=== PATIENT | female | born 1970 | race Caucasian/White ===

== ENCOUNTER 2019-02-24 10:45 | Emergency (ER) | payer MEDICARE, MEDICAID, SELFPAY ==
[2019-02-24 10:46] VITALS: BP 117/77; PULSE 57; RESP 16; TEMP 36.4; O2SAT 99; BMI 36.5
--- NOTE | 2019-02-24 10:49 | ED.RN ---
ATYPICAL SX, CALLED FOR EKG
--- NOTE | 2019-02-24 10:57 | US_ITS ---
STUDY: ABDOMINAL ULTRASOUND - RIGHT UPPER QUADRANT REASON FOR VISIT: Female, 48 years old . One day history of right upper quadrant pain. TECHNIQUE: Ultrasound evaluation of the right upper quadrant was performed with real-time and static erd-scale imaging. TECHNICAL QUALITY: Adequate. COMPARISON: None. FINDINGS: Liver: The liver measures 15.5 cm. There is normal echogenicity of the liver. The bile ducts are within normal limits. There is hepatic color flow. The direction of portal flow is hepatopetal. There is no demonstrated mass lesion. Gallbladder: Normal distended gallbladder. The gallbladder wall measures 2.8 mm. There is a negative sonographic Suarez's sign. There is no pericholecystic fluid. There are no gallstones. Common Bile Duct (C.B.D.): The common bile duct measures 4.3 mm. Pancreas: Normal size of the head, body and tail of the pancreas. There is normal echogenicity of the pancreas. There is no demonstrated pancreatic mass or cyst. Right Kidney: Normal size of the right kidney. The right kidney measures 10.5 cm x 5.4 cm x 4.6 cm. Normal renal cortex. The right cortex measures 1.7 cm. There is no demonstrated renal mass or cyst. There is no right hydronephrosis. US/Abdomen Limited IMPRESSION: Normal right upper quadrant ultrasound examination. Electronically Signed: Jerry De La O, at 12:41 EST , Service support ,
--- NOTE | 2019-02-24 10:58 | EKG12_ITS ---
Test Reason : ABD PAIN Blood Pressure : / mmHG Vent. Rate : 045 BPM Atrial Rate : 045 BPM P-R Int : 168 ms QRS Dur : 078 ms QT Int : 446 ms P-R-T Axes : 013 054 027 degrees QTc Int : 385 ms Sinus bradycardia Otherwise normal ECG Confirmed by DANY OCAMPO, WANDER ([id number]), pictures editor OLIVIA ARREAGA ([id number]) on 02/25/2019 1:51:47 PM Referred By: HUGO Confirmed By:WANDER SAENZ MD
--- NOTE | 2019-02-24 11:00 | ED.VISSUMM ---
- ER Visit Summary Date of Service: 02/24/19 Chief Complaint: Abdominal pain History of Present Illness: The patient is a 48 F who presents the emergency department with upper abdominal pain and nausea and vomiting. Symptoms began while they are waiting for their mom to recover from a endoscopy procedure. After vomiting patient complained of chest pain. Normal bowel movement this morning. She had a piece of toast this morning but it is not uncommon for her to eat very light. No diarrhea. No fevers. No significant cough runny nose sore throat. Physical Examination: Afebrile vital signs are stable Gen: Well-nourished well-developed Head: Normocephalic atraumatic Eyes: Perrl EOMI ENT: TMs clear no rhinorrhea moist mucous membranes Neck: Supple no lymphadenopathy no JVD nontender CVS: Regular rate rhythm no murmurs normal S1-S2 Respiratory: No distress clear to auscultation bilaterally chest nontender Abdomen: Soft tender to palpation in the right upper quadrant epigastric region without guarding or rebound nondistended normal bowel sounds no masses Back: Nontender Extremity: Nontender no edema Skin: Normal color no rash Neuro: alert orientated ?3 CN II-XII intact normal strength sensation reflexes gait cerebellar Psych: Normal affect normal mood Test Results: EKG is a sinus bradycardia rate of 45. No concerning ST segments. No ectopy. White count 13.1. Glucose 117. Liver lipase negative. Troponin is negative. Gallbladder ultrasound was negative. CT and pelvis did not demonstrate any acute findings. Emergency Department Course and Treatment: The patient received Toradol and Zofran. She is feeling better. Mom was asking about her heart rate being in the 50s. She is on a beta-darlene. Some component of this may be vagal from her nausea and vomiting. I asked that they record her blood pressure and heart rate take it to Dr. Mora's office in follow-up for review. Patient will be discharged home with prescription for Zofran return if worsening or concerns. Impression: 1. Acute abdominal pain 2. Vomiting This note was generated with [employer] dictation software. It may contain incorrect words, spelling, and punctuation that were not noted in review of the chart prior to signing ED Disposition - Plan for ED Patient: Disposition: Home or Assisted Living Instructions: ABDOMINAL PAIN, Unknown Cause, (Female), VOMITING (5y-Adult) Prescriptions: Ondansetron [Zofran Odt] 4 mg PO Q8H PRN PRN #20 tab PRN Reason: Nausea Prescription Printed Referrals: Wei Anthony III, MD [Primary Care Provider] - 1 Week Additional Instructions: Record her resting heart rate for the next several days take that data to Dr. Anthony's office. If she continues to be bradycardic she may need to have her medications adjusted
[2019-02-24 11:43] LABS: Absolute Lymphocyte Count 1.83 X10^3/uL (0.83-4.51); Absolute Neutrophil Count 10.8 X10^3/uL (2.0-7.7); Basophil# 0.05 X10^3/uL; Basophil% 0.4 % (0-1); Eosinophil# 0.03 X10^3/uL; Eosinophils% 0.2 % (0-5); Hematocrit 40.8 % (37-47); Hemoglobin 13.5 g/dL (12.0-15.0); Lymphocyte # 1.83 X10^3/ul (4.0); Mean Corp Hgb Conc 33.1 g/dL (32-36); Mean Corpuscular Hgb 28.9 pg (27.0-32.0); Mean Corpuscular Volume 87.4 fL (81-99); Mean Platelet Vol. 9.8 fl (6.2-12.0); Monocyte# 0.36 X10^3/uL; Monocyte% 2.7 % (0-10); NRBC Flagged by Analyzer 0 % (0-5); Neutrophil # 10.79 X10^3/uL (2.7-7.7); Neutrophil % 82.3 % (47-70); Platelet Count 358 K/mm3 (150-450); RBC Distribution Width CV 13.5 % (11.6-14.6); RBC Distribution Width SD 43.2 fl (35.1-43.9); Red Blood Count 4.67 M/mm3 (4.2-5.4); White Blood Count 13.1 K/mm3 (4.4-11.0)
[2019-02-24] MEDS: Ondansetron 4 MG/2 ML Vial IV ×2 (11:43→12:54)
[2019-02-24 12:04] LABS: AST(SGOT) 15 U/L (15-37); Alanine Aminotransfer ALT/SGPT 22 U/L (13-56); Albumin, Serum 3.2 g/dL (3.2-5.0); Alkaline Phosphatase 107 U/L (45-117); Anion Gap 6 (5-15); BUN 13 mg/dL (7-18); BUN/Creat Ratio 21.1 RATIO (10-20); Bilirubin, Direct 0.08 mg/dL (0.00-0.30); Calcium,Total 8.7 mg/dL (8.5-10.1); Chloride 107 mmol/L (98-107); Creatinine, Serum 0.62 mg/dL (0.55-1.02); EST Glomerular Filtration Rate 109 mL/min (>60); Est Glom Filt Rate - Afr Amer 132 mL/min (>60); Estimated Creatinine Clearance 78.84 ml/min; Globulin 4.3 g/dL (2.2-4.2); Glucose 117 mg/dL (74-106); Lipase 102 U/L (73-393); Protein, Total 7.5 g/dL (6.4-8.2); Sodium Level 138 mmol/L (136-145)
[2019-02-24 12:45] VITALS: BP 122/74; PULSE 57; RESP 16; TEMP 36.7; O2SAT 96
[2019-02-24] MEDS: Ketorolac 15 MG/ML Vial IV (12:54)
--- NOTE | 2019-02-24 13:14 | CT_ITS ---
STUDY: CT ABDOMEN AND PELVIS WITHOUT CONTRAST REASON FOR EXAM: Female, 48 years old. Right upper quadrant pain. RADIATION DOSAGE (If Supplied By Facility): CTDIvol = ( 13.89 ) mGy, DLP = ( 663.97 ) mGycm TECHNIQUE: Transaxial images were obtained from the dome of the diaphragm to the symphysis pubis without oral contrast, and without intravenous contrast. Sagittal and coronal images were reconstructed. Individualized dose optimization techniques were used for this CT. COMPARISON: Comparison is made with prior study dated November 28, 2014. FINDINGS: The visualized lung bases are unremarkable. The visualized portions of the heart are within normal limits. Normal liver. Normal gallbladder and extrahepatic biliary system. Normal spleen. Normal pancreas. There is a small, circumscribed, smooth, low attenuation left adrenal mass, consistent with an adrenal adenoma. This measures 1.2 cm. Normal right adrenal gland. Normal right kidney. Normal left kidney. There is a small hiatal hernia. Normal small intestine. Normal colon. The appendix is visualized and appears normal. Normal abdominal aorta. Normal inferior vena cava. Normal retroperitoneum. Normal urinary bladder. Normal abdominal wall. There are degenerative changes of the visualized lumbar spine. CT/Abdomen/Pelvis without Cont IMPRESSION: No acute abnormality is seen Electronically Signed: Jerry De La O, at 13:52 EST , Service support ,
[2019-02-24 14:37] VITALS: BP 125/68; PULSE 66; RESP 16; O2SAT 98
--- NOTE | 2019-02-24 14:39 | ED.RN ---
REVIEWED D/C INSTRUCTIONS, FOLLOW UP CARE, PRESCRIPTION, AND S/S THAT WOULD WARRANT A RETURN TO THE ED WITH PT AND FAMILY MEMBERS. BOTH VERBALIZED AN UNDERSTANDING AND DENY FURTHER QUESTIONS FOR THIS RN. PT SKIN P/W/D, RESP EVEN AND UNLABORED, PT A&O X 3, NO DISTRESS NOTED. PT AMBULATED OUT OF ED, GAIT STEADY.
== END 2019-02-24 14:40 | disposition home or self-care (01) ==
PROVIDERS: Emergency Provider Emergency Medicine; Family Provider Family Medicine; PCP Family Medicine
DX: R10.13 Epigastric pain (principal); R11.2 Nausea with vomiting, unspecified; A08.4 Viral intestinal infection, unspecified; F84.0 Autistic disorder; Z79.899 Other long term (current) drug therapy
CPT/HCPCS: 36415; 74176; 76705; 80048; 80076; 81001; 83690; 84484; 85025; 93005; 96374; 96375; 96376; 99282; 99284; A4216; J2405

== ENCOUNTER 2019-02-24 20:34 | Emergency (ER) | payer MEDICARE, MEDICAID, SELFPAY ==
[2019-02-24 10:46] VITALS: BMI 36.5
[2019-02-24 20:34] VITALS: BP 143/85; PULSE 89; RESP 16; TEMP 36.6; O2SAT 100; BMI 35.7
[2019-02-24 21:55] LABS: Absolute Lymphocyte Count 2.02 X10^3/uL (0.83-4.51); Absolute Neutrophil Count 18.2 X10^3/uL (2.0-7.7); Basophil# 0.07 X10^3/uL; Basophil% 0.3 % (0-1); Hematocrit 44.8 % (37-47); Hemoglobin 14.5 g/dL (12.0-15.0); Lymphocyte # 2.02 X10^3/ul (4.0); Lymphocyte % 9.4 % (19-41); Mean Corp Hgb Conc 32.4 g/dL (32-36); Mean Corpuscular Hgb 28.8 pg (27.0-32.0); Mean Corpuscular Volume 88.9 fL (81-99); Mean Platelet Vol. 10.3 fl (6.2-12.0); Monocyte# 1.08 X10^3/uL; NRBC Flagged by Analyzer 0 % (0-5); Neutrophil % 84.7 % (47-70); Platelet Count 323 K/mm3 (150-450); RBC Distribution Width CV 13.8 % (11.6-14.6); RBC Distribution Width SD 44.5 fl (35.1-43.9); Red Blood Count 5.04 M/mm3 (4.2-5.4); White Blood Count 21.5 K/mm3 (4.4-11.0)
[2019-02-24 22:00] LABS: Color, Urine Yellow (Yellow); Glucose, Dipstick Normal (Normal); Ketone-Dipstick Negative (Negative); Leukocyte Esterase-Dipstick 100 /ul (Negative); Nitrite-Dipstick Negative (Negative); Occult Blood-Urine 50 /ul (Negative); Protein-Dipstick Negative (Negative); Specific Gravity, Urine 1.015 (1.002-1.030); Urine Bilirubin Dipstick Negative (Negative); Urine Clarity Clear (Clear); Urine Urobilinogen Normal (Normal)
[2019-02-24 22:10] LABS: Bacteria RARE /hpf (None Seen); Mucous, Urine RARE /hpf (<or=2+); Red Blood Cells-Urine 0-5 SEEN /hpf (0-5); Squamous Epithelial Cells - UA 0-5 SEEN /hpf (5-10); White Blood Cells 0-5 SEEN /hpf (0-5)
[2019-02-24] MEDS: Ketorolac 60 MG/2 ML Vial IM (22:17)
[2019-02-24 22:54] LABS: Anion Gap 8 (5-15); BUN 11 mg/dL (7-18); Calcium,Total 8.6 mg/dL (8.5-10.1); Chloride 103 mmol/L (98-107); Creatinine, Serum 0.65 mg/dL (0.55-1.02); EST Glomerular Filtration Rate 103 mL/min (>60); Est Glom Filt Rate - Afr Amer 125 mL/min (>60); Glucose 131 mg/dL (74-106); Potassium 3.8 mmol/L (3.5-5.1); Sodium Level 135 mmol/L (136-145)
--- NOTE | 2019-02-24 23:15 | ED.VISSUMM ---
- ER Visit Summary Date of Service: 02/24/19 Chief Complaint: Abdominal pain with nausea, vomiting and diarrhea History of Present Illness: The patient is a 48 F history of syncope and autism. Patient was seen earlier today this morning around 930 started having nausea vomiting diarrhea and periumbilical abdominal discomfort. No fever no chills no dysuria. She only had one episode of diarrhea. No hematemesis or melena. She was seen in the emergency department earlier today. Had unremarkable labs and a negative ultrasound and a negative CAT scan. States that she has had more cramping and return for repeat evaluation. No prior abdominal surgeries. No vaginal bleeding or discharge. Physical Examination: Middle-aged female no acute distress vital signs are stable and afebrile. She does not look septic or toxic. Pulse ox on percent room air no signs of hypoxia. HEENT exam unremarkable except for mildly driving his memories. Neck nontender no lymphadenopathy. Lungs clear to auscultation. Heart regular rhythm rate about 90 no murmur. Abdomen is soft. Nondistended. No peritoneal signs. Mild periumbilical epigastric tenderness. No rebound guarding or rigidity. No hernias or masses. No signs of obstruction. Both the right upper right lower quadrants are unremarkable. Is very benign abdominal exam. Positive bowel sounds. Patient is moving all 4 extremities. Back is nontender. Neurologically she is awake and alert. Test Results: I reviewed the patient's prior ER visit her CBC chemistries liver and lipase are unremarkable. I repeated the CBC her white count is now 21,000 with a normal hemoglobin and hematocrit no bands. I do not know if this is from a traumatic stick. In light of a negative CT and a negative ultrasound with a benign exam I do not think this needs further evaluation. Actually feeling much better. Chemistries are unremarkable with a normal creatinine and gap. UA was normal. Emergency Department Course and Treatment: Nurses were unable to obtain an IV. Patient drank p.o. fluids. She was given IM Toradol. On repeat exam her abdomen is benign. A 2305. States she feels much better. Treatment Plan: Zofran which she was already prescribed for nausea. Fluids and rest. Follow-up with her primary care physician if feeling worse or return to the ER. Disposition: Discharge Impression: Acute abdominal pain with nausea, vomiting and diarrhea secondary to viral gastroenteritis This note was generated with [employer] dictation software. It may contain incorrect words, spelling, and punctuation that were not noted in review of the chart prior to signing ED Disposition - Plan for ED Patient: Referrals: Wei Anthony III, MD [Primary Care Provider] -
--- NOTE | 2019-02-24 23:19 | ED.DEP ---
ED Disposition - Plan for ED Patient: Disposition: Home or Assisted Living Instructions: GASTROENTERITIS, Viral (5y-Adult) Referrals: Wei Anthony III, MD [Primary Care Provider] - 1-2 Days if not improving Additional Instructions: Plenty of fluids and rest. Zofran as needed for nausea. Follow-up with your primary care physician if not improving return to ER feeling worse. I suspect this is a viral gastroenteritis and should improve over the next several days. Plenty of fluids and increase her diet slowly as tolerated.
[2019-02-24 23:33] VITALS: BP 129/77; PULSE 101; RESP 18; O2SAT 98
== END 2019-02-24 23:34 | disposition home or self-care (01) ==
PROVIDERS: Emergency Provider Emergency Medicine; Family Provider Family Medicine; PCP Family Medicine
DX: A08.4 Viral intestinal infection, unspecified (principal); F84.0 Autistic disorder; Z79.899 Other long term (current) drug therapy
CPT/HCPCS: 36415; 80048; 81001; 85025; 96372

== ENCOUNTER → 2019-03-10 15:17 | Outpatient (CLI) | payer MEDICARE, MEDICAID, SELFPAY ==
[2019-02-24 20:34] VITALS: BMI 35.7
--- NOTE | 2019-03-10 15:21 | CT_ITS ---
STUDY: CT ABDOMEN AND PELVIS WITH CONTRAST REASON FOR EXAM: Female, 48 years old. RLQ pain x 2 weeks, fever, elevated WBC, ? appendicitis. Hx autism, hypertension. RADIATION DOSAGE (If Supplied By Facility): CTDIvol = ( 12.72 ) mGy, DLP = ( 973.15 ) mGycm TECHNIQUE: Transaxial images were obtained from the dome of the diaphragm to the symphysis pubis without oral contrast. IV/Oral Isovue 370 100mL was administered. Sagittal and coronal images were reconstructed. Individualized dose optimization techniques were used for this CT. COMPARISON: CT of the abdomen and pelvis dated February 24, 2019 FINDINGS: There is fluid distention and some distal perforation the appendix compatible with acute perforated appendicitis. A moderate amount of limits. Phlegmon is present. A couple of foci of free air also present near the base of the cecum. No fluid collections/abscesses are present. Normal visualized stomach. Normal small intestine. Normal colon. No bowel dilatation or obstruction. No free air or free fluid. The visualized lung bases are unremarkable. Normal liver. No intrahepatic biliary duct dilatation or liver mass. The gallbladder is contracted. Normal spleen. Normal pancreas. Normal bilateral adrenal glands. Normal right kidney. Normal left kidney. . No hydronephrosis or renal masses. No large stones. Normal abdominal aorta. Normal inferior vena cava. Normal retroperitoneum. Normal urinary bladder. Circumscribed small nodule of the uterine fundus compatible with a fibroid. The adnexa are unremarkable. Normal abdominal wall. Normal osseous structures. CT/Abdomen/Pelvis WITH Contrast IMPRESSION: 1. Perforated appendicitis with phlegmon and the couple of foci of free air in the appendix bed but no circumscribed fluid collections. * Critical finding logged and received. * Regarding your critical for patient Nic Dave..Per department administrator Medina, covering physician Dr. Wei Anthony III is aware of findings and sending patient to the ED. N.B. : Dr. Wei Anthony III, MD, confirmed on 03/10/2019 18:19:16 (ET) that the referring physician received the results and does not require a verbal communication. Electronically Signed: Garret Singh MD at 18:24 EST , Service support ,
== END ==
PROVIDERS: Family Provider Family Medicine; PCP Family Medicine; Referring Provider Nurse Practitioner Family; Visit Provider Nurse Practitioner Family
DX: R10.9 Unspecified abdominal pain (principal)
CPT/HCPCS: 74177; Q9967; A4216

== ENCOUNTER 2019-03-10 18:23 | Observation (INO) | payer MEDICARE, MEDICAID, SELFPAY ==
[2019-03-10 18:26] VITALS: BP 143/76; PULSE 83; PULSE 86; RESP 17; RESP 18; TEMP 36.6; O2SAT 100; O2SAT 99; BMI 35.4
[2019-03-10 19:14] LABS: Absolute Neutrophil Count 7.4 X10^3/uL (2.0-7.7); Basophil# 0.05 X10^3/uL; Basophil% 0.5 % (0-1); Eosinophil# 0.13 X10^3/uL; Eosinophils% 1.2 % (0-5); Hematocrit 39.3 % (37-47); Hemoglobin 12.9 g/dL (12.0-15.0); Lymphocyte % 23.3 % (19-41); Mean Corp Hgb Conc 32.8 g/dL (32-36); Mean Corpuscular Hgb 28.5 pg (27.0-32.0); Mean Corpuscular Volume 86.9 fL (81-99); Mean Platelet Vol. 9.3 fl (6.2-12.0); Monocyte# 0.61 X10^3/uL; Monocyte% 5.7 % (0-10); NRBC Flagged by Analyzer 0 % (0-5); Neutrophil # 7.38 X10^3/uL (2.7-7.7); Neutrophil % 68.7 % (47-70); Platelet Count 627 K/mm3 (150-450); RBC Distribution Width SD 41.4 fl (35.1-43.9); Red Blood Count 4.52 M/mm3 (4.2-5.4); White Blood Count 10.7 K/mm3 (4.4-11.0)
--- NOTE | 2019-03-10 19:24 | ED.DCSUM_ITS ---
- ER Visit Summary Date of Service: 03/10/19 Chief Complaint: Perforated appendicitis History of Present Illness: The patient is a 48 F who was sent from imaging for an abnormal CT. She has been having lower abdominal pain for over a week. She had an outpatient CT that showed a perforated appendicitis with phlegmon. Patient reports pain but denies any other associated symptoms. No surgical history. No blood thinners. N.p.o. since 10:30 AM. Physical Examination: Afebrile and vital signs unremarkable. Patient has lower abdominal tenderness. Test Results: Labs pending. Emergency Department Course and Treatment: Patient is n.p.o. IV access obtained. Labs sent. Zosyn started. Surgery contacted and will evaluate the patient in the ED. Treatment Plan: As above Disposition: Admission Impression: 1. Perforated appendicitis This note was generated with [employer] dictation software. It may contain incorrect words, spelling, and punctuation that were not noted in review of the chart prior to signing ED Disposition - Plan for ED Patient: Referrals: Wei Anthony III, MD [Primary Care Provider] -
[2019-03-10 19:26] LABS: Anion Gap 8 (5-15); BUN 10 mg/dL (7-18); BUN/Creat Ratio 14.8 RATIO (10-20); Calcium,Total 9.1 mg/dL (8.5-10.1); Chloride 104 mmol/L (98-107); Creatinine, Serum 0.68 mg/dL (0.55-1.02); EST Glomerular Filtration Rate 98 mL/min (>60); Est Glom Filt Rate - Afr Amer 119 mL/min (>60); Estimated Creatinine Clearance 75.52 ml/min; Glucose 107 mg/dL (74-106); Potassium 3.6 mmol/L (3.5-5.1); Sodium Level 139 mmol/L (136-145)
--- NOTE | 2019-03-10 19:26 | EKG12_ITS ---
Test Reason : PRE OP Blood Pressure : / mmHG Vent. Rate : 074 BPM Atrial Rate : 074 BPM P-R Int : 168 ms QRS Dur : 076 ms QT Int : 360 ms P-R-T Axes : 001 027 -09 degrees QTc Int : 399 ms Normal sinus rhythm with sinus arrhythmia T wave abnormality, consider inferior ischemia Abnormal ECG Confirmed by DANY OCAMPO, WANDER ([id number]), editor trade journal JENNIFER DASILVA ([id number]) on 03/14/2019 11:16:03 AM Referred By: Maureen Chavez Confirmed By:WANDER SAENZ MD
[2019-03-10 19:41] LABS: International Normalized Ratio 1.2; Partial Thromboplast Time 33.7 Seconds (24.1-36.2); Prothrombin Time (Protime)PT. 14.5 SECONDS (11.7-14.9)
--- NOTE | 2019-03-10 21:29 | PCM.HP.STD ---
History of Present Illness Date of Admission: 03/10/19 Chief Complaint: lower abdominal pain The patient is a 48 year old F who presents with a two-week history of abdominal pain. She has degree of developmental delay which makes complete communication somewhat challenging and per her family she has a very high pain threshold. The patient resolved with [facility] February 24, 2019 with nondescript abdominal pain. The patient noted valvular white blood count of 21,000. CT scan of the abdomen and pelvis was obtained which demonstrated no specific abnormalities. The appendix was noted to be greater than 7 mm but when compared to a CT scan from 4 years previously demonstrated a stable appearing appendix. Patient also underwent ultrasound. The patient was discharged to home from the emergency department. The patient's family notes she's had persistent discomfort usually in the lower abdomen but again somewhat difficult to ascertain from the patient's ability to relate history for the last 2 weeks. She is noted diarrhea for the last 2 weeks. She has tolerated a diet. There is no obvious fever or chills. She presented for outpatient CT scan today. This CT scan was interpreted as missed appendicitis with a phlegmon at the base of the cecum 2 small air bubbles but otherwise contained collection. There was no signs of bowel obstruction diffuse signs of peritoneal irritation. The patient was referred to the emergency department. Repeat laboratory studies were obtained and I was contacted. Past Medical History Allergies No Known Allergies Allergy (Verified 03/10/19 18:24) Home Medications: Ambulatory Orders Medication Instructions Recorded Ondansetron [Zofran Odt] 4 mg PO Q8H PRN PRN #10 tablet 11/28/14 Atenolol 50 mg PO DAILY 02/24/19 Biotin 10,000 mcg PO DAILY 03/10/19 Smoking Status: Never smoker Review of Systems Constitutional: Denies: Chills, Fever, Weight Change HEENT: Denies: Head Aches, Sinus Congestion, Sinus Drainage Cardiovascular: Denies: Chest Pain, Palpitations Respiratory: Denies: Cough, Shortness of breath at rest, Sputum production Gastrointestinal: Denies: Abdominal Pain, Nausea, Vomiting Genitourinary: Denies: Dysuria Musculoskeletal: Denies: Joint Pain, Joint Tenderness Skin: Denies: Rash, Wounds Neurological: Denies: Numbness, Tingling, Focal weakness Psychiatric: Denies: Anxiety, Depression, Homicidal Ideations, Suicidal Ideations Hematologic/ Lymphatic: Denies: Easy Bruising, Easy Bleeding VTE Information - Inpt Only VTE Present on Admission: No VTE Mechan Device Prophylaxis: SCD's - Physical Exam Vitals/I&O's: Vital Signs Temp Pulse Resp BP Pulse Ox 97.8 F 86 18 143/76 H 100 03/10/19 18:26 03/10/19 18:26 03/10/19 18:26 03/10/19 18:26 03/10/19 18:26 Oxygen Delivery Method Room Air Weight: 85.2 kg Body Mass Index (BMI) 35.4 Intake and Output for Last 24 Hours 03/08/19 03/09/19 03/10/19 23:59 23:59 23:59 Intake Total 100 / 100 Balance 100 / 100 General: Alert, Oriented x3, Cooperative Lungs: Clear to auscultation, Normal air movement Cardiovascular: Regular rate, No murmurs Abdomen: Bowel Sounds Present, Soft, Tender - mild diffusely tender without peritoneal signs no obvious or increased right lower quadrant tenderness compared to her remaining exam. Laboratory Results 03/10/19 19:00: WBC 10.7, RBC 4.52, Hgb 12.9, Hct 39.3, MCV 86.9, MCH 28.5, MCHC 32.8, RDW Std Deviation 41.4, RDW Coeff of Yoandy 13.0, Plt Count 627 H, MPV 9.3, Immature Gran % (Auto) 0.600, Neut % (Auto) 68.7, Lymph % (Auto) 23.3, [place] % (Auto) 5.7, Eos % (Auto) 1.2, Baso % (Auto) 0.5, Absolute Neuts (auto) 7.4, Absolute Lymphs (auto) 2.50, Nucleated RBC % 0 03/10/19 19:00: PT 14.5, INR 1.2, APTT 33.7 03/10/19 19:00: Sodium 139, Potassium 3.6, Chloride 104, Carbon Dioxide 27.0, Anion Gap 8, BUN 10, Creatinine 0.68, Estim Creat Clear Calc 75.52, Est GFR (MDRD) Af Amer 119, Est GFR (MDRD) Non-Af 98, BUN/Creatinine Ratio 14.8, Glucose 107 H, Calcium 9.1 Current Medications Atenolol (Tenormin (Beta Omer)) 50 mg PO DAILY MARK Lactated Ringer's () 1,000 mls @ 40 mls/hr IV .Q25H MARK Piperacillin Sod/Tazobactam (Sod 3.375 gm/ Sodium Chloride) 50 mls @ 12.5 mls/hr IV Q8 MARK Ibuprofen (Motrin) 400 mg PO Q4H PRN PRN PRN Reason: Pain Score 1-5/10 Morphine Sulfate () 1 - 2 mg IV Q1H PRN PRN PRN Reason: Pain Score 1-10/10 Assessment/Plan clinical missed appendicitis. I extensively discussed with the family the treatment course. Currently the patient is afebrile has a normal white blood cell count but does have elevated platelet count and that the findings noted and reviewed on CT scan imaging. The patient will be admitted. We will start Zosyn and follow her clinically. She'll maintain her diet. If she has leukocytosis or fever blood cultures will be obtained. If the patient's symptoms become more focal in the right lower quadrant and plan for repeat CT scan. I discussed with the family that was phlegmon I see no abscess or other drainable collection and they understand the plan course of treatment. Patient did have apparently a syncopal episode in 2004. This was unknown etiology. She was maintained on atenolol since that time.
[2019-03-10 21:31] VITALS: BP 120/59; PULSE 80; RESP 18; TEMP 36.4; O2SAT 100
[2019-03-10 21:32] VITALS: BMI 34.6
[2019-03-10 21:36] VITALS: BMI 34.7
[2019-03-10] MEDS: Lactated Ringers 1,000 ML 40 ML IV (21:44)
[2019-03-11 03:05] VITALS: BP 104/52; PULSE 88; RESP 16; TEMP 36.6; O2SAT 96
[2019-03-11 03:13] VITALS: PULSE 78
[2019-03-11 05:49] LABS: Absolute Lymphocyte Count 2.67 X10^3/uL (0.83-4.51); Absolute Neutrophil Count 5.1 X10^3/uL (2.0-7.7); Basophil# 0.05 X10^3/uL; Basophil% 0.6 % (0-1); Eosinophil# 0.21 X10^3/uL; Eosinophils% 2.4 % (0-5); Hematocrit 32.9 % (37-47); Hemoglobin 10.9 g/dL (12.0-15.0); Lymphocyte # 2.67 X10^3/ul (4.0); Lymphocyte % 30.2 % (19-41); Mean Corp Hgb Conc 33.1 g/dL (32-36); Mean Corpuscular Hgb 28.5 pg (27.0-32.0); Mean Corpuscular Volume 86.1 fL (81-99); Mean Platelet Vol. 10.1 fl (6.2-12.0); Monocyte# 0.73 X10^3/uL; Monocyte% 8.3 % (0-10); NRBC Flagged by Analyzer 0 % (0-5); Neutrophil % 57.7 % (47-70); Platelet Count 461 K/mm3 (150-450); RBC Distribution Width CV 13.2 % (11.6-14.6); RBC Distribution Width SD 41.4 fl (35.1-43.9); Red Blood Count 3.82 M/mm3 (4.2-5.4); White Blood Count 8.8 K/mm3 (4.4-11.0)
[2019-03-11 06:11] LABS: Anion Gap 8 (5-15); BUN 8 mg/dL (7-18); BUN/Creat Ratio 17.3 RATIO (10-20); Calcium,Total 8.1 mg/dL (8.5-10.1); Chloride 109 mmol/L (98-107); Creatinine, Serum 0.46 mg/dL (0.55-1.02); EST Glomerular Filtration Rate 153 mL/min (>60); Est Glom Filt Rate - Afr Amer 185 mL/min (>60); Estimated Creatinine Clearance 111.63 ml/min; Glucose 83 mg/dL (74-106); Potassium 3.7 mmol/L (3.5-5.1); Sodium Level 139 mmol/L (136-145)
[2019-03-11] MEDS: 0.9% Normal Saline 1,000 ML 40 ML IV (06:38)
[2019-03-11 08:51] VITALS: BP 118/71; PULSE 97; RESP 16; TEMP 36.7; O2SAT 94
[2019-03-11] MEDS: Atenolol 50 MG Tablet PO (08:57)
--- NOTE | 2019-03-11 10:25 | CASEMGMT ---
RN CM Assessment Presentation: Appendicitis with phlegmon Intro role of CM and purpose of RN CM assessment to patient and her mother. Pt is awake, alert and able to participate in assessment.. Demographics, PCP and Pharmacy verified. Pt states she lives independently with her mother. PCP: Dr. Wei Anthony III Specialists: Preferred Pharmacy: [facility] Insurance: [facility] Prescription Benefit: yes LNOK: Mother Selin Lucero Living Arrangements: Lives independently. No care needs identified Transportation: mother drives DME: none HHC/SNF: none Patient DC goals: Home DC PLAN: Home Jamil ANGULO RN ACM
[2019-03-11 14:25] VITALS: BP 111/65; PULSE 75; RESP 16; TEMP 36.6; O2SAT 95
--- NOTE | 2019-03-11 19:49 | PN.SURG_ITS ---
Subjective: no abdominal pain - Physical Exam Vitals/I&O's: Vital Signs Temp Pulse Resp BP Pulse Ox 97.8 F 75 16 111/65 95 03/11/19 14:25 03/11/19 14:25 03/11/19 14:25 03/11/19 14:25 03/11/19 14:25 Oxygen Delivery Method Room Air Weight: 83.2 kg Body Mass Index (BMI) 34.6 Intake and Output for Last 24 Hours 03/09/19 03/10/19 03/11/19 23:59 23:59 23:59 Intake Total 100 / 100 1044.66 / 1044.66 Output Total 300 / 300 Balance 100 / 100 744.66 / 744.66 General: Alert, Oriented x3, Cooperative Lungs: Clear to auscultation, Normal air movement Cardiovascular: Regular rate, Regular Rhythm Abdomen: Bowel Sounds Present, Soft, Non Tender Laboratory Results 03/11/19 05:02: WBC 8.8, RBC 3.82 L, Hgb 10.9 L, Hct 32.9 L, MCV 86.1, MCH 28.5, MCHC 33.1, RDW Std Deviation 41.4, RDW Coeff of Yoandy 13.2, Plt Count 461 H, MPV 10.1, Immature Gran % (Auto) 0.800, Neut % (Auto) 57.7, Lymph % (Auto) 30.2, [place] % (Auto) 8.3, Eos % (Auto) 2.4, Baso % (Auto) 0.6, Absolute Neuts (auto) 5.1, Absolute Lymphs (auto) 2.67, Nucleated RBC % 0 03/11/19 05:02: Sodium 139, Potassium 3.7, Chloride 109 H, Carbon Dioxide 22.0, Anion Gap 8, BUN 8, Creatinine 0.46 L, Estim Creat Clear Calc 111.63, Est GFR (MDRD) Af Amer 185, Est GFR (MDRD) Non-Af 153, BUN/Creatinine Ratio 17.3, Glucose 83, Calcium 8.1 L Current Medications Atenolol (Tenormin (Beta Omer)) 50 mg PO DAILY MARK Last Admin: 03/11/19 08:57 Dose: 50 mg Documented by: Piperacillin Sod/Tazobactam (Sod 3.375 gm/ Sodium Chloride) 50 mls @ 12.5 mls/hr IV Q8 MARK Last Infusion: 03/11/19 18:43 Dose: Infused Documented by: Sodium Chloride () 250 mls @ 15 mls/hr IV .[id number] PRN PRN Reason: Saline Flush Sodium Chloride () 1,000 mls @ 40 mls/hr IV .Q25H MARK Last Infusion: 03/11/19 18:43 Dose: 40 mls/hr Documented by: Ibuprofen (Motrin) 400 mg PO Q4H PRN PRN PRN Reason: Pain Score 1-5/10 Morphine Sulfate () 1 - 2 mg IV Q1H PRN PRN PRN Reason: Pain Score 1-10/10 Sodium Chloride () 10 - 40 ml IV UD PRN PRN Reason: SALINE FLUSH Medical Necessity - Tobacco Use Smoking Status: Never smoker Assessment/Plan clinical missed appendicitis. I extensively discussed with the family the treatment course. Currently the patient is afebrile has a normal white blood cell count but does have elevated platelet count and that the findings noted and reviewed on CT scan imaging. The patient will be admitted. We will start Zosyn and follow her clinically. She'll maintain her diet. If she has leukocytosis or fever blood cultures will be obtained. If the patient's symptoms become more focal in the right lower quadrant and plan for repeat CT scan. I discussed with the family that was phlegmon I see no abscess or other drainable collection and they understand the plan course of treatment. Patient did have apparently a syncopal episode in 2004. This was unknown etiology. She was maintained on atenolol since that time.
[2019-03-11 20:15] VITALS: PULSE 72; RESP 18; O2SAT 97
[2019-03-11 20:16] VITALS: BP 108/51; PULSE 72; RESP 18; TEMP 36.9; O2SAT 97
[2019-03-12 04:00] VITALS: BP 114/56; PULSE 63; RESP 16; TEMP 36.6; O2SAT 97
--- NOTE | 2019-03-12 06:36 | DS.PCM_ITS ---
Discharge Date and Diagnosis Date of Admission: 03/10/19 Date of Discharge: 03/12/19 - Primary Discharge Diagnosis missed appendicitis Hospital Course and Treatment Operations: None Summary of Care Provided: The patient is a 48 year old F with missed appendicitis. She presented to [facility] ER on February 24 with an elevated WBC but a CT scan interpreted as normal. She had persistent pain and returned. CT scan was repeated with missed appendicitis. She was started on IV antibiotics. remained afebrile and was discharged to [facility] - Physical Exam Vitals/I&O's: Vital Signs Temp Pulse Resp BP Pulse Ox 97.9 F 63 16 114/56 L 97 03/12/19 04:00 03/12/19 04:00 03/12/19 04:00 03/12/19 04:00 03/12/19 04:00 Oxygen Delivery Method Room Air Weight: 83.2 kg Body Mass Index (BMI) 34.6 Intake and Output for Last 24 Hours 03/10/19 03/11/19 03/12/19 23:59 23:59 23:59 Intake Total 100 / 100 1147.99 / 1297.99 405.33 / 405.33 Output Total 300 / 600 700 / 700 Balance 100 / 100 847.99 / 697.99 -294.67 / -294.67 General: Alert, Oriented x3, Cooperative Lungs: Clear to auscultation, Normal air movement Cardiovascular: Regular rate, No murmurs Abdomen: Bowel Sounds Present, Soft, Non Tender Current Medications Atenolol (Tenormin (Beta Omer)) 50 mg PO DAILY [facility] Last Admin: 03/11/19 08:57 Dose: 50 mg Documented by: Piperacillin Sod/Tazobactam (Sod 3.375 gm/ Sodium Chloride) 50 mls @ 12.5 mls/hr IV Q8 [facility] Last Admin: 03/12/19 05:11 Dose: 12.5 mls/hr Documented by: Sodium Chloride () 250 mls @ 15 mls/hr IV .[id number] PRN PRN Reason: Saline Flush Sodium Chloride () 1,000 mls @ 40 mls/hr IV .Q25H [facility] Last Infusion: 03/12/19 05:11 Dose: 0 mls/hr Documented by: Ibuprofen (Motrin) 400 mg PO Q4H PRN PRN PRN Reason: Pain Score 1-5/10 Morphine Sulfate () 1 - 2 mg IV Q1H PRN PRN PRN Reason: Pain Score 1-10/10 Sodium Chloride () 10 - 40 ml IV UD PRN PRN Reason: SALINE FLUSH Discharge Diet: No Restrictions Home Medications: Medications to take at Discharge Ondansetron [Zofran Odt] 4 mg PO Q8H PRN PRN #10 tablet 11/28/14 Atenolol 50 mg PO DAILY 02/24/19 Biotin 10,000 mcg PO DAILY 03/10/19 Amoxicillin/Potassium Clav [Augmentin 875-125 Tablet] 1 ea PO BID #20 tab 03/12/19 Ibuprofen [Motrin] 400 mg PO Q4H PRN PRN tablet 03/12/19 Following Prescrptions Were Given to Patient: Amoxicillin/Potassium Clav [Augmentin 875-125 Tablet] 1 ea PO BID #20 tab Prescription Printed Primary Care Physician: Wei Anthony III, MD [Primary Care Provider] - Please Follow Up With: Damoin Perez MD When: 1 week Medical Necessity - Tobacco Use Smoking Status: Never smoker Meaningful Use Info Meaningful Use Diagnoses (Choose all that apply): None applicable
--- NOTE | 2019-03-12 06:54 | PCM.DC ---
You will use the following diet at home:: No restrictions Discharge Activity: May Shower Allergies/Adverse Reactions: Allergies No Known Allergies Allergy (Verified 03/10/19 18:24) Medications to take at Discharge Ondansetron [Zofran Odt] 4 mg PO Q8H PRN PRN #10 tablet 11/28/14 Atenolol 50 mg PO DAILY 02/24/19 Biotin 10,000 mcg PO DAILY 03/10/19 Amoxicillin/Potassium Clav [Augmentin 875-125 Tablet] 1 ea PO BID #20 tab 03/12/19 Ibuprofen [Motrin] 400 mg PO Q4H PRN PRN tablet 03/12/19 The following prescriptions were given: Amoxicillin/Potassium Clav [Augmentin 875-125 Tablet] 1 ea PO BID #20 tab Prescription Printed Primary Care Physician: Wei Anthony III, MD [Primary Care Provider] - Test Results: Test results from this visit will be discussed in further detail at your follow-up appointment, if applicable. Please Follow Up With: Damion Perez MD When: 1 week
[2019-03-12 08:24] VITALS: BP 118/62; PULSE 86; RESP 16; TEMP 36.2; O2SAT 97
== END 2019-03-12 10:07 | disposition home or self-care (01) ==
LOC: ED 18:53 → MS3 21:17
PROVIDERS: Admitting Provider Surgery; Emergency Provider Emergency Medicine; Family Provider Family Medicine; PCP Family Medicine; Visit Provider Surgery
DX: K36 Other appendicitis (principal); R62.59 Other lack of expected normal physiological development in childhood; R94.31 Abnormal electrocardiogram [ECG] [EKG]; Z79.899 Other long term (current) drug therapy; Z86.79 Personal history of other diseases of the circulatory system; I49.8 Other specified cardiac arrhythmias; R10.9 Unspecified abdominal pain
CPT/HCPCS: 36415; 74177; 80048; 85025; 85610; 85730; 93005; 96365; 96366; 99218; 99251; J7030; J7120; Q9967; A4216; G0378; G0463

== ENCOUNTER 2019-03-28 20:21 | Inpatient (IN) | payer MEDICARE, MEDICAID, SELFPAY ==
[2019-03-28 20:22] VITALS: BP 132/74; PULSE 119; RESP 14; TEMP 36.7; O2SAT 99; BMI 35.3
[2019-03-28 21:05] VITALS: BP 136/91; PULSE 122; RESP 18; O2SAT 96
--- NOTE | 2019-03-28 21:12 | CT_ITS ---
HISTORY: Abdominal pain. Nausea and vomiting. Recent history ruptured appendicitis. EXAMINATION: CT Abdomen And Pelvis W/ Contrast Injection TECHNIQUE: Helically acquired images were obtained of the abdomen and pelvis following IV contrast. A radiation dose optimization technique was used for this scan. IV Contrast dosage and agent: 100ml Isovue 370 IV Oral contrast: Oral Gastrografin COMPARISON: 03/10/2019 FINDINGS: GI tract and appendix: Ruptured appendicitis with right lower quadrant inflammatory phlegmon and cecal mural thickening by recent CT. Right lower quadrant phlegmon and soft tissue streaking within the mesentery is improved but not resolved. No focal abscess identified. The cecum shows decreased mural thickening but with residual submucosal edema. Increase fluid within the small bowel together with liquid stool within the colon in keeping with diarrhea. Enteritis and C. difficile colitis would be included in the differential. No bowel obstruction. No diverticulitis or pneumoperitoneum identified. No free fluid. Lower thorax: Clear. No pleural effusion or pericardial effusion. The gallbladder is normal distended with probable tiny stone at the gallbladder neck. No biliary dilatation. Normal liver, spleen, and pancreas. Both kidneys are normal in position. Bilateral renal opacification without evidence of hydronephrosis, pyelonephritis, or suspicious renal lesion. The adrenal glands are not enlarged. Abdominal aorta is normal in caliber. Patent IVC. No free fluid or retroperitoneal lymph node enlargement. Pelvis: Fibroid uterus, unchanged. No free fluid or lymph node enlargement. Normal urinary bladder. CT/Abdomen/Pelvis WITH Contrast IMPRESSION: 1. Recently demonstrated right lower quadrant phlegmon is improved but not resolved. No abscess or free fluid identified. 2. Previously seen cecal mural thickening is improved but not resolved. 3. Increased small bowel fluid and liquid stool within the colon in keeping with diarrhea. Enteritis and C. difficile colitis would be included in the differential. No diverticulitis or pneumoperitoneum. 4. Cholelithiasis suggested. No biliary dilatation. 5. Fibroid uterus. Individualized dose optimization techniques were used for this CT. at 2342 Reported and signed by: Marbin Nelson MD Electronically Signed: Marbin Nelson, at 23:41 EST Tel , Service support ,
[2019-03-28] MEDS: Morphine 2 MG/ML Syringe IV (21:23)
[2019-03-28] MEDS: Ondansetron 4 MG/2 ML Vial IV (21:23)
[2019-03-28] MEDS: 0.9% Normal Saline 1,000 ML 1000 ML IV (21:23)
[2019-03-28 21:28] LABS: Absolute Neutrophil Count 18.7 X10^3/uL (2.0-7.7); Basophil# 0.07 X10^3/uL; Basophil% 0.3 % (0-1); Eosinophil# 0.13 X10^3/uL; Eosinophils% 0.6 % (0-5); Hematocrit 43.1 % (37-47); Lymphocyte % 6.1 % (19-41); Mean Corp Hgb Conc 32.5 g/dL (32-36); Mean Corpuscular Hgb 28.4 pg (27.0-32.0); Mean Corpuscular Volume 87.4 fL (81-99); Mean Platelet Vol. 10.1 fl (6.2-12.0); Monocyte# 1.01 X10^3/uL; Monocyte% 4.7 % (0-10); NRBC Flagged by Analyzer 0 % (0-5); Neutrophil # 18.67 X10^3/uL (2.7-7.7); Neutrophil % 87.9 % (47-70); Platelet Count 389 K/mm3 (150-450); RBC Distribution Width CV 14.1 % (11.6-14.6); RBC Distribution Width SD 45.3 fl (35.1-43.9); Red Blood Count 4.93 M/mm3 (4.2-5.4); White Blood Count 21.3 K/mm3 (4.4-11.0)
[2019-03-28 21:35] VITALS: TEMP 36.7
[2019-03-28 21:53] LABS: ALB/GLOB Ratio 0.8 RATIO (0.9-2.4); AST(SGOT) 22 U/L (15-37); Alanine Aminotransfer ALT/SGPT 30 U/L (13-56); Albumin, Serum 3.5 g/dL (3.2-5.0); Alkaline Phosphatase 121 U/L (45-117); Anion Gap 7 (5-15); BUN 14 mg/dL (7-18); BUN/Creat Ratio 17.3 RATIO (10-20); Chloride 106 mmol/L (98-107); Creatinine, Serum 0.81 mg/dL (0.55-1.02); EST Glomerular Filtration Rate 80 mL/min (>60); Est Glom Filt Rate - Afr Amer 97 mL/min (>60); Globulin 4.5 g/dL (2.2-4.2); Glucose 120 mg/dL (74-106); Potassium 4.1 mmol/L (3.5-5.1); Sodium Level 140 mmol/L (136-145)
[2019-03-28 22:30] LABS: Lactic Acid 1.7 mmol/L (0.4-1.9)
--- NOTE | 2019-03-28 23:05 | ED.VIS.GEN ---
History of Present Illness Chief Complaint: Abd Pain Detail of Chief Complaint: Acute abdominal pain with nausea and vomiting Informant: Family Limited by: - - Developmentally delayed Onset: Today Context: Sudden Onset Timing: Continuous Quality: Pain with nausea and vomiting Location: Bilateral lower abdomen Current Severity: Moderate Maximum Severity: Severe Worsened by: Movement, walking and vomiting Relieved by: Nothing Associated Symptoms: History of ruptured appendix with phlegmon Narrative: Patient is a middle-aged woman who was seen in February and felt to have viral illness. She had extensive work-up which included ultrasound and CAT scan that was unremarkable. The only abnormality was an elevated white count. Repeat CAT scan of the abdomen revealed a ruptured appendix with phlegmon. Patient was treated with IV Zosyn and discharged with antibiotics. She was seen by Dr. Perez. White count normalized. History is limited secondary to cognitive impairment. Family states she rarely complains of pain unless there is something wrong. Prior similar symptoms: Yes Recent Illness/Hospitalization: Yes - Past Medical History (1) Ruptured appendix Status: Acute Past Medical History - Allergies and Home Meds Allergies/Adverse Reactions: Allergies No Known Allergies Allergy (Verified 03/28/19 20:27) Primary Care Physician: Wei Anthony III, MD [Primary Care Provider] - Prior records reviewed: Yes Surgical History: noncontributory Lives: With Family Smoking Status: Never smoker Alcohol: None Drugs: None Review of Systems General: Reports: Fever, Subjective. Denies: Chills, Malaise, Sweats ENT: Denies: Bilateral ear pain, Rhinorrhea, Sore throat Cardiovascular: Denies: Chest pain, Palpitations Respiratory: Denies: Dyspnea, Cough Gastrointestinal: Reports: Abdominal pain, Nausea, Vomiting. Denies: Diarrhea, Constipation, Melena, Hematochezia Genitourinary: Denies: Dysuria, Hematuria, Frequency Musculoskeletal: Denies: Myalgias, Arthralgias, Neck pain, Back pain, Swelling, Extremity Pain, -, - Skin: Denies: Rash Neurological: Denies: Headache, Weakness Hematologic: Denies: Easy bruising, Easy bleeding Physical Exam Vital Signs/Narrative: Vital Signs Temp Pulse Resp BP Pulse Ox 03/28/19 21:35 98.1 F 03/28/19 21:05 122 H 18 136/91 H 96 03/28/19 20:22 98.1 F 119 H 14 132/74 H 99 Inital Vital Signs reviewed: Yes General: Well nourished, Well developed, Obese, Acute Distress Head: Normocephalic, Atraumatic Eyes: Perrl, EOMI. Negative for: Pale conjunctiva, Scleral icterus ENT: No rhinorrhea, TM's clear, Dry mucous membranes Neck: Supple, Nontender, No lymphadenopathy, No JVD Cardiovascular: Regular rhythm, No murmurs, Normal S1, Normal S2, Tachycardia Respiratory: No distress, CTA bilaterally, Chest nontender Abdomen: No masses, Tender, Guarding, Hypoactive bowel sounds. Negative for: Hepatomegaly, Splenomegaly, Pulsatile mass, Ventral hernia, Inguinal hernia Rectal: Deferred Back: Nontender, Normal Inspection Extremities: Nontender, No edema Skin: No rash, Pallor Neurological: Alert, Cranial nerves II-XII grossly intact, Normal Strength, Normal Sensation Psychological: Normal affect Diagnostic/Tx/Re-eval Impressions Abdomen/Pelvis CT 03/28/19 21:12 IMPRESSION: 1. Recently demonstrated right lower quadrant phlegmon is improved but not resolved. No abscess or free fluid identified. 2. Previously seen cecal mural thickening is improved but not resolved. 3. Increased small bowel fluid and liquid stool within the colon in keeping with diarrhea. Enteritis and C. difficile colitis would be included in the differential. No diverticulitis or pneumoperitoneum. 4. Cholelithiasis suggested. No biliary dilatation. 5. Fibroid uterus. Individualized dose optimization techniques were used for this CT. at 2342 Reported and signed by: Marbin Nelson MD Electronically Signed: Marbin Nelson, at 23:41 EST Tel , Service support , ADDENDUM: 03/29/19 0018 IMPRESSION: 1. Recently demonstrated right lower quadrant phlegmon is improved but not resolved. No abscess or free fluid identified. 2. Previously seen cecal mural thickening is improved but not resolved. 3. Increased small bowel fluid and liquid stool within the colon in keeping with diarrhea. Enteritis and C. difficile colitis would be included in the differential. No diverticulitis or pneumoperitoneum. 4. Cholelithiasis suggested. No biliary dilatation. 5. Fibroid uterus. Individualized dose optimization techniques were used for this CT. at 2342 Reported and signed by: Marbin Nelson MD Electronically Signed: Marbin Nelson, at 0:10 EST Tel , Service support , 03/28/19 21:12 Abdomen/Pelvis WITH Contrast [CT] Stat Laboratory Results 03/28/19 03/28/19 03/28/19 21:18 21:18 21:18 WBC 21.3 H RBC 4.93 Hgb 14.0 Hct 43.1 MCV 87.4 MCH 28.4 MCHC 32.5 RDW Std Deviation 45.3 H RDW Coeff of Yoandy 14.1 Plt Count 389 MPV 10.1 Immature Gran % (Auto) 0.400 Neut % (Auto) 87.9 H Lymph % (Auto) 6.1 L [place] % (Auto) 4.7 Eos % (Auto) 0.6 Baso % (Auto) 0.3 Absolute Neuts (auto) 18.7 H Absolute Lymphs (auto) 1.30 Nucleated RBC % 0 Sodium 140 Potassium 4.1 Chloride 106 Carbon Dioxide 27.0 Anion Gap 7 BUN 14 Creatinine 0.81 Estim Creat Clear Calc 63.40 Est GFR (MDRD) Af Amer 97 Est GFR (MDRD) Non-Af 80 BUN/Creatinine Ratio 17.3 Glucose 120 H Lactic Acid 1.7 Calcium 9.0 Total Bilirubin 0.30 AST 22 ALT 30 Alkaline Phosphatase 121 H Total Protein 8.0 Albumin 3.5 Globulin 4.5 H Albumin/Globulin Ratio 0.8 L Radiologist was contacted because there is no history of diarrhea. Patient presents with the abrupt onset abdominal pain with nausea and vomiting. She is not had diarrhea for several days. White count is elevated. Uncertain etiology. Discussed case because there was no comment regarding absence of oral contrast past the pylorus. He agrees there is no contrast in the small bowel. He states there is no swelling or edema to suggest gastric outlet obstruction. I am in agreement that the phlegmon and inflammatory changes secondary to the ruptured appendix appear better. Lactate and blood culture was obtained because of elevated white count. She did receive a dose of Zosyn. Case was discussed with Dr. Jolie Love who is on-call for Dr. Damion Perez. She requested admission to medical service since there is no surgical emergency or problem that would require operative intervention. She agrees with NG. She agrees with admission. Patient did have a period of unresponsiveness where she was pale and vomiting. Her symptoms were consistent with a vasovagal response. She has a history of basal cell vagal syncope. - Medical Decision Making With history of ruptured appendix now complaining of acute abdominal pain with nausea vomiting need to rule out partial bowel obstruction, colitis, complication of ruptured appendix. A CBC, competence metabolic panel was obtained. Because of the elevated white count tachycardia lactate and blood cultures were added and patient received 4.[address] of the abdomen was obtained to evaluate her symptoms and determine etiology. NG for nausea vomiting and possible ileus. Source of white count is unknown. ED Disposition - Plan for ED Patient: Disposition: Acute Care Hospital [facility] Diagnosis: Acute bilateral upper abdominal pain, Nausea & vomiting, Leukocytosis, unspecified, Rupture of appendix, Phlegmon, Vasovagal syncope Referrals: Wei Anthony III, MD [Primary Care Provider] -
[2019-03-28] MEDS: Morphine 4 MG/ML Syringe IV (23:15)
[2019-03-28 23:26] VITALS: BP 134/76; PULSE 113; RESP 18; TEMP 37; O2SAT 97
--- NOTE | 2019-03-28 23:49 | EKG12_ITS ---
Test Reason : DYSRHYTHMIA Blood Pressure : / mmHG Vent. Rate : 082 BPM Atrial Rate : 082 BPM P-R Int : 188 ms QRS Dur : 076 ms QT Int : 354 ms P-R-T Axes : 025 037 -08 degrees QTc Int : 413 ms Sinus rhythm with marked sinus arrhythmia T wave abnormality, consider inferior ischemia T wave abnormality, consider anterior ischemia Abnormal ECG Confirmed by DERIAN SMITH ([id number]), news editor OLIVIA ARREAGA ([id number]) on 04/02/2019 1:03:48 PM Referred By: VIRGINIE Confirmed By:DERIAN SMITH
--- NOTE | 2019-03-28 23:51 | ED.RN ---
FAMILY MEMBER CALLED OUT FOR HELP FROM ROOM. PER PATIENTS FAMILY MEMBER PATIENT WAS SITTING AT EDGE OF BED VOMITING WHEN EYES ROLLED IN THE BACK OF HER HEAD AND BECAME UNRESPONSIVE. UPON RN ARRIVAL TO ROOM PATIENT WAS SLUMPED OVER LEANING ON FAMILY MEMBERS. PATIENT ALERT AFTER APPROXIMATELY 10 SECONDS. PATIENT PALE AND DIAPHORETIC. VITAL SIGNS STABLE. PATIENT PLACED ON MONITOR. DR. GALINDO NOTIFIED. WILL CONTINUE TO MONITOR.
[2019-03-29] VITALS (10 sets, daily range): BP systolic 116–140; BP diastolic 58–81; PULSE 88–99; RESP 16–18; TEMP 36.6–37.1; O2SAT 94–99; BMI 32.8
--- NOTE | 2019-03-29 00:39 | HP.PCM_ITS ---
Problem List (1) Ruptured appendix Status: Acute (2) Nausea & vomiting Status: Acute (3) Leukocytosis, unspecified Status: Acute (4) Phlegmon Status: Acute (5) Vasovagal syncope Status: Acute History of Present Illness Date of Admission: 03/29/19 Chief Complaint: nausea and vomiting The patient is a 48 year old F with a significant history of previous cardiac arrest who was diagnosed with a ruptured appendix in February 2019 presenting with persistent nausea and vomiting that started on the day of presentation. Associated with her symptoms is severe sharp right lower quadrant abdominal pain. At the emergency department patient was noted to be vomiting;became pale and had an unresponsive episode. Emergency department doctor reported tenderness on abdominal examination. With her ruptured appendix in February 2019 patient received inpatient antibiotics and was discharged home on p.o. antibiotics which she has completed therapy. Emergency department doctor discussed the case with general surgery. Past Medical History Medical History: Medical History (Last Reviewed 03/29/19 @ 06:49 by Dharmesh Avalos MD) Cardiac arrest I46.9 Allergies No Known Allergies Allergy (Verified 03/28/19 20:27) Home Medications: Ambulatory Orders Medication Instructions Recorded Atenolol 50 mg PO DAILY 02/24/19 Biotin 10,000 mcg PO DAILY 03/10/19 Surgical History: no surgical history Lives: With Family Smoking Status: Never smoker Alcohol: None Drugs: None - *Family History Maternal History Items: Hypertension, - - Thyroid disease Paternal History Items: Hypertension, Stroke, - - Atrial fibrillation Review of Systems Constitutional: Denies: Chills, Fever, Weight Change HEENT: Denies: Head Aches, Sinus Congestion, Sinus Drainage Cardiovascular: Reports: Syncope. Denies: Chest Pain, Palpitations Respiratory: Denies: Cough, Shortness of breath at rest, Sputum production Gastrointestinal: Reports: Abdominal Pain, Nausea, Vomiting Genitourinary: Denies: Dysuria Musculoskeletal: Denies: Joint Pain, Joint Tenderness Skin: Denies: Rash, Wounds Neurological: Denies: Numbness, Tingling, Focal weakness Psychiatric: Denies: Anxiety, Depression, Homicidal Ideations, Suicidal Ideations Hematologic/ Lymphatic: Denies: Easy Bruising, Easy Bleeding VTE Information - Inpt Only VTE Present on Admission: No VTE Mechan Device Prophylaxis: SCD's VTE Pharm Prophylaxis ordered?: No Patient Problems: Active and Suspected Problems (Last Updated 03/29/19 @ 04:13 by Dharmesh Avalos MD) Ruptured appendix (Acute) Nausea & vomiting (Acute) Leukocytosis, unspecified (Acute) Phlegmon (Acute) Vasovagal syncope (Acute) - Physical Exam Vitals/I&O's: Vital Signs Temp Pulse Resp BP Pulse Ox 98.6 F 113 H 18 134/76 H 97 03/28/19 23:26 03/28/19 23:26 03/28/19 23:26 03/28/19 23:26 03/28/19 23:26 Oxygen Delivery Method Room Air Weight: 84.822 kg Body Mass Index (BMI) 35.3 Intake and Output for Last 24 Hours 03/27/19 03/28/19 03/29/19 23:59 23:59 23:59 Intake Total 1000 / 1000 Balance 1000 / 1000 General: Alert, Oriented x3, Cooperative HEENT: Atraumatic, PERRLA, EOMI, Normocephalic Neck: Supple, No JVD, Negative Carotid Bruits Lungs: Clear to auscultation, Normal air movement Cardiovascular: Normal S1, Normal S2, No murmurs, Tachycardic Abdomen: Bowel Sounds Present, Soft, Non Tender Extremities: No edema, Capillary Refill Less than 3 Seconds Skin: No rashes, No breakdown Musculoskeletal: No Tenderness to Palpation of Joints or Extremities Neurological: Cranial nerves II-XII grossly intact Psych/Mental Status: Normal Affect, Appropriate Laboratory Results 03/28/19 21:18: WBC 21.3 H, RBC 4.93, Hgb 14.0, Hct 43.1, MCV 87.4, MCH 28.4, MCHC 32.5, RDW Std Deviation 45.3 H, RDW Coeff of Yoandy 14.1, Plt Count 389, MPV 10.1, Immature Gran % (Auto) 0.400, Neut % (Auto) 87.9 H, Lymph % (Auto) 6.1 L, [place] % (Auto) 4.7, Eos % (Auto) 0.6, Baso % (Auto) 0.3, Absolute Neuts (auto) 18.7 H, Absolute Lymphs (auto) 1.30, Nucleated RBC % 0 03/28/19 21:18: Sodium 140, Potassium 4.1, Chloride 106, Carbon Dioxide 27.0, Anion Gap 7, BUN 14, Creatinine 0.81, Estim Creat Clear Calc 63.40, Est GFR (MDRD) Af Amer 97, Est GFR (MDRD) Non-Af 80, BUN/Creatinine Ratio 17.3, Glucose 120 H, Calcium 9.0, Total Bilirubin 0.30, AST 22, ALT 30, Alkaline Phosphatase 121 H, Total Protein 8.0, Albumin 3.5, Globulin 4.5 H, Albumin/Globulin Ratio 0.8 L 03/28/19 21:18: Lactic Acid 1.7 Assessment/Plan All Active Problems (Last Updated 03/29/19 @ 04:13 by Dharmesh Avalos MD) Ruptured appendix (Acute) Nausea & vomiting (Acute) Leukocytosis, unspecified (Acute) Phlegmon (Acute) Vasovagal syncope (Acute) The patient is a 48 year old F with a significant history of previous cardiac arrest who was diagnosed with a ruptured appendix in February 2019 presenting with persistent nausea and vomiting ; severe right lower abdominal pain to have tachycardia; leukocytosis and radiographic evidence of improving phlegmon consistent with sepsis. Sepsis secondary to abdominal phlegmon Patient meets SIRS criteria with count of 21.3; and heart rate as high as 122 Source of infection is from phlegmon secondary to ruptured appendix. Received Zosyn at the emergency department. Change antibiotics to Cipro and Flagyl. General surgery consulted Patient was made n.p.o. and NG tube was placed at the emergency department; continued Trend CBC and BMP IV hydration with normal saline Antiemetics with IV Zofran. Pain medication with IV morphine. Also CT of the abdomen showed cholelithiasis which likely is not causing her symptoms at this time. Acute vagal event Secondary to vomiting We will place on telemetry. DVT prophylaxis SCD Code Visit Inpatient E&M: 60004 Init Hosp L3
--- NOTE | 2019-03-29 00:51 | RAD_ITS ---
STUDY: X-RAY - ABDOMEN/PELVIS REASON FOR EXAM: Female, 48 years old. Gastric tube. TECHNIQUE: Single AP view of the abdomen / pelvis. COMPARISON: None. FINDINGS: Normal visualized lung bases. The nasogastric tube has the tip projecting over the gastric body just junction with the antrum. There is an unremarkable bowel gas pattern. There is no demonstrated free abdominal air. The visualized liver, spleen and kidneys are grossly normal in size and morphology. Normal soft tissue structures. Normal visualized osseous structures. RAD/Abdomen Single View IMPRESSION: Nasogastric/orogastric tube as described above. Electronically Signed: Lyla Canas MD at 2:00 EST , Service support ,
[2019-03-29] MEDS: 0.9% Normal Saline 1,000 ML 75 ML IV ×2 (03:06→19:03)
[2019-03-29] MEDS: Ciprofloxacin 400 MG/200 ML BAG 200 MG IV ×2 (03:06→23:01)
[2019-03-29] MEDS: metroNIDAZOLE 500 MG/100 ML BAG 100 MG IV ×3 (04:25→21:29)
[2019-03-29 06:57] LABS: Absolute Lymphocyte Count 1.38 X10^3/uL (0.83-4.51); Absolute Neutrophil Count 8.8 X10^3/uL (2.0-7.7); Basophil# 0.04 X10^3/uL; Basophil% 0.4 % (0-1); Eosinophil# 0.01 X10^3/uL; Eosinophils% 0.1 % (0-5); Hematocrit 35.8 % (37-47); Hemoglobin 11.8 g/dL (12.0-15.0); Lymphocyte # 1.38 X10^3/ul (4.0); Mean Corpuscular Hgb 28.6 pg (27.0-32.0); Mean Corpuscular Volume 86.9 fL (81-99); Mean Platelet Vol. 10.7 fl (6.2-12.0); Monocyte# 0.33 X10^3/uL; Monocyte% 3.1 % (0-10); NRBC Flagged by Analyzer 0 % (0-5); Neutrophil # 8.81 X10^3/uL (2.7-7.7); Neutrophil % 83.1 % (47-70); Platelet Count 319 K/mm3 (150-450); RBC Distribution Width CV 14.5 % (11.6-14.6); RBC Distribution Width SD 46.5 fl (35.1-43.9); Red Blood Count 4.12 M/mm3 (4.2-5.4); White Blood Count 10.6 K/mm3 (4.4-11.0)
[2019-03-29 07:36] LABS: Anion Gap 4 (5-15); BUN 14 mg/dL (7-18); BUN/Creat Ratio 20.6 RATIO (10-20); Calcium,Total 7.8 mg/dL (8.5-10.1); Chloride 108 mmol/L (98-107); Creatinine, Serum 0.68 mg/dL (0.55-1.02); EST Glomerular Filtration Rate 98 mL/min (>60); Est Glom Filt Rate - Afr Amer 118 mL/min (>60); Estimated Creatinine Clearance 75.52 ml/min; Glucose 113 mg/dL (74-106); Potassium 3.7 mmol/L (3.5-5.1); Sodium Level 139 mmol/L (136-145)
[2019-03-29] MEDS: BENZOCAINE/MENTHOL 1 LOZENGE MUCOUS MEM (10:27)
--- NOTE | 2019-03-29 10:55 | PCM.PN.BLA ---
Progress Note This is a 48 years old female patient presented to the emergency room because of lower abdominal pain with nausea and vomiting. Patient had perforated appendicitis on February, which was treated conservatively with IV antibiotics and she was discharged on Augmentin. Yesterday, she came back with abdominal pain with nausea and vomiting. CT scan abdomen and pelvis with contrast done last night and revealed improved right lower quadrant phlegmon but not resolved, cecal mural thickening, increased small bowel fluid and liquid stool without evidence of free air or pneumoperitoneum. She is on IV ciprofloxacin and Flagyl. Leukocytosis resolved, she has been afebrile. Today, she has no more pain. Abdominal examination is benign. Awaiting general surgery recommendations. STROKE Vital Signs/Narrative: Vital Signs Temp Pulse Resp BP Pulse Ox 03/29/19 08:52 90 03/29/19 08:48 98.6 F 89 16 116/59 L 94 03/29/19 08:00 99
--- NOTE | 2019-03-29 11:26 | PCM.HP.BLA ---
History and Physical Date of Admission: 03/29/19 IMPRESSION: history of perforated appendicitis probable still disseminated intraabdominal bacteria ileus secondary to above PLAN: continue antibiotics as you are doing continue NG tube decompression until patient is passing flatus
--- NOTE | 2019-03-29 11:28 | PCM.CONS.B ---
- Consult Date of Consult: 03/29/19 - Reason for Consult CC: abdominal pain, nausea and emesis HISTORY OF PRESENT ILLNESS: Jolie is a 48 y/o WF who presents with a days history of abdominal pain (lower) and nausea and emesis. She had been admitted to the hospital by Dr. Perez the before Cornelio with findings of perforated appendicitis (a CT scan about two weeks earlier did not show appendicitis). She was admitted for IV antibiotics and discharged home with antibiotics after a few days. She states that she was on antibiotics until a week ago and felt well. She had seen Dr. Perez for follow up and at the time was doing well. However, she began having lower abdominal pain and nausea/emesis. States that pain was same as before Blayne. She was evaluated in the ED. CT scan reveals improving phlegmonous process of appendiceal inflammation. Last had bowel movement yesterday, does not recall last passage of flatus. Initial laboratory studies - WBC 21.3k this morning it was 10.6K, still with positive left shift of differential. PAST MEDICAL HISTORY: MRDD PAST SURGICAL HISTORY: none ALLERGIES: NKDA MEDICATIONS: Ondansetron [Zofran Odt] 4 mg PO Q8H PRN PRN #10 tablet 11/28/14 Atenolol 50 mg PO DAILY 02/24/19 Biotin 10,000 mcg PO DAILY 03/10/19 PERSONAL HISTORY: Smoking Status: Never smoker ETOH: none REVIEW OF SYSTEMS: Constitutional: Denies: Chills, Fever, Weight Change HEENT: Denies: Head Aches, Sinus Congestion, Sinus Drainage Cardiovascular: Denies: Chest Pain, Palpitations Respiratory: Denies: Cough, Shortness of breath at rest, Sputum production Gastrointestinal: see HPI Genitourinary: Denies: Dysuria Musculoskeletal: Denies: Joint Pain, Joint Tenderness Skin: Denies: Rash, Wounds Neurological: Denies: Numbness, Tingling, Focal weakness Psychiatric: Denies: Anxiety, Depression, Homicidal Ideations, Suicidal Ideations Hematologic/ Lymphatic: Denies: Easy Bruising, Easy Bleeding EXAM: BP 121/86 Pulse 88 Temp 99.5 ?F Resp 16 Wt 175 lb General Appearance: Well appearing, alert, in no acute distress, well-hydrated, well nourished.. Oropharynx: Lips, mucosa, and tongue normal, teeth and gums normal, oropharynx normal. Neck: Supple, no adenopathy; thyroid symmetric, normal size, no bruits. Lungs: lungs clear to auscultation. No wheezing, rhonchi, rales. Heart: RRR without murmur, gallop, or rubs. No ectopy. Abdomen: Normal abdominal exam, Abdomen soft, non-tender. Bowel sounds normal. No masses, organomegaly. IMPRESSION: history of perforated appendicitis probable still disseminated intraabdominal bacteria ileus secondary to above PLAN: continue antibiotics as you are doing continue NG tube decompression until patient is passing flatus/BM appreciate the hospitalist service for their care of this patient
[2019-03-29] MEDS: 0.9% Saline Lock 10 ML Syringe IV (12:07)
[2019-03-29] MEDS: Metoclopramide 10 MG/2 ML Vial 5 MG IV (12:07)
--- NOTE | 2019-03-29 15:34 | CASEMGMT ---
RN CM Assessment Introduced role of RN CM to patient, patient mother and cousin at bedside. Patient gives permission for this commercial loan underwriter to discuss assessment in family presence.? Patient is alert, oriented and able?to participate in RN CM Assessment. ?Care providers, pharmacy, and demographics verified. Presentation: Persistent N/V, Sever sharp RLQ Abd pain. Had a ruptured appendicitis February 2019. Admit Dx: Sepsis Re-Admit: No Barriers/Issues: None PCP: Wei Anthony III Specialists: Surgeon- Dr Perez [facility] Insurance: [employer] A[employer], BERNIE Rx Benefit:?Yes ?LNOK: Mother Selin Lucero LW/HPOA: States has both, aware not on file with [facility] and when brouht in will scan a copy on file. HPOA- Mother Selin Lucero Living Arrangements:? Lives with mother in a H, 3 steps to enter home ADL?s: Independent with ambulation and ADLs Transportation: Mother drives DME: None HHC: None SNF: None Goal: Home and does not think will have any needs. Denies any issues, concerns or questions with DC planning at this time. Aware CM remains available for any emerging needs. DC PLAN: Home with no anticipated needs identified at this time. ROSALINA Lopez
[2019-03-30] VITALS: PULSE 97
[2019-03-30 00:03] VITALS: PULSE 81
[2019-03-30 03:27] VITALS: BP 121/69; PULSE 86; RESP 16; TEMP 36.6; O2SAT 97
[2019-03-30] MEDS: metroNIDAZOLE 500 MG/100 ML BAG 100 MG IV (05:40)
[2019-03-30 06:03] VITALS: PULSE 77
[2019-03-30 08:25] VITALS: BP 131/74; PULSE 95; RESP 16; TEMP 36.8; O2SAT 95
--- NOTE | 2019-03-30 09:38 | DCINST_ITS ---
- Discharge Diagnoses Current Active Problems: Current Active and Chronic Problems (Last Reviewed 03/29/19 @ 06:49 by Dharmesh Avalos MD) Ruptured appendix (Acute) Nausea & vomiting (Acute) Leukocytosis, unspecified (Acute) Phlegmon (Acute) Vasovagal syncope (Acute) You will use the following diet at home:: Full liquid - Advance slowly as tolerated. Your food should be the consistency of: Regular Discharge Activity: Return to Normal Activity Weight Bearing Status: Full weight bearing Call your doctor if you observe: Fever of 101 or Higher, Shortness of breath, Dizziness, Fainting spells, Chest pain, Increased palpitations (irregular heartbeat), Uncontrolled pain Additional Instructions: You can use [id number] Tylenol or Aleve as needed for pain. Allergies/Adverse Reactions: Allergies No Known Allergies Allergy (Verified 03/28/19 20:27) Medications to take at Discharge Atenolol 50 mg PO DAILY 02/24/19 Biotin 10,000 mcg PO DAILY 03/10/19 Ciprofloxacin [Cipro] 500 mg PO BID #20 tab 03/30/19 metroNIDAZOLE [Flagyl] 500 mg PO Q8H #30 tab 03/30/19 The following prescriptions were given: Ciprofloxacin [Cipro] 500 mg PO BID #20 tab Transmission Status: Pending to [facility] metroNIDAZOLE [Flagyl] 500 mg PO Q8H #30 tab Transmission Status: Pending to [facility] Primary Care Physician: Wei Anthony III, MD [Primary Care Provider] - Please follow up with your Primary Care Physician in: 2-3 WEEKS. Test Results: Test results from this visit will be discussed in further detail at your follow- up appointment, if applicable. Please Follow Up With: Damion Perez MD When: 1 week.
--- NOTE | 2019-03-30 11:08 | PCM.PN.SRG ---
Subjective: patient feeling much improved, denies abdominal pain, has normal bowel function - Physical Exam Vitals/I&O's: Vital Signs Temp Pulse Resp BP Pulse Ox 98.3 F 95 16 131/74 H 95 03/30/19 08:25 03/30/19 08:25 03/30/19 08:25 03/30/19 08:25 03/30/19 08:25 Oxygen Delivery Method Room Air Weight: 78.7 kg Body Mass Index (BMI) 32.8 Intake and Output for Last 24 Hours 03/28/19 03/29/19 03/30/19 23:59 23:59 23:59 Intake Total 1000 / 1000 2547.50 / 2547.50 925 / 925 Output Total 750 / 750 Balance 1000 / 1000 1797.50 / 1797.50 925 / 925 Current Medications Glucagon () 1 mg IM .X1 PRN PRN Reason: Hypoglycemia Ciprofloxacin (Cipro) 400 mg in 200 mls @ 200 mls/hr IV Q12 MARK Last Infusion: 03/30/19 00:01 Dose: Infused Documented by: Metronidazole (Flagyl) 500 mg in 100 mls @ 100 mls/hr IV Q8 MARK Last Infusion: 03/30/19 06:40 Dose: Infused Documented by: Dextrose (Dextrose 10%-Water) 250 mls @ 999 mls/hr IV X1 PRN; Protocol PRN Reason: HYPOGLYCEMIA Sodium Chloride () 250 mls @ 15 mls/hr IV .[id number] PRN PRN Reason: Saline Flush Morphine Sulfate () 2 mg IV Q3H PRN PRN PRN Reason: Pain Score 6-10/10 Ondansetron HCl (Zofran) 4 mg IV Q8H PRN PRN PRN Reason: NAUSEA/VOMITING Sodium Chloride () 10 - 40 ml IV UD PRN PRN Reason: SALINE FLUSH Last Admin: 03/29/19 12:07 Dose: 10 ml Documented by: Throat Lozenges (Cepacol Sore Throat Lozenge) 1 lozenge MUCOUS MEM Q2H PRN PRN PRN Reason: SORE THROAT Last Admin: 03/29/19 10:27 Dose: 1 lozenge Documented by: Medical Necessity - Tobacco Use Smoking Status: Never smoker Assessment/Plan All Active Problems (Last Reviewed 03/29/19 @ 06:49 by Dharmesh Avalos MD) Ruptured appendix (Acute) Nausea & vomiting (Acute) Leukocytosis, unspecified (Acute) Phlegmon (Acute) Vasovagal syncope (Acute) Impression: perforated appendicitis Plan: as per hospitalist service, patient to be discharged on two antibiotics and follow up with Dr. Perez as outpatient
--- NOTE | 2019-03-30 11:43 | PCM.DC.SUM ---
Discharge Date and Diagnosis Date of Admission: 03/29/19 Date of Discharge: 03/30/19 - Primary Discharge Diagnosis #1 lower abdominal pain/right lower quadrant phlegmon. #2 sepsis. #3 recent history of ruptured appendicitis. Hospital Course and Treatment Imaging Results: Clinical Impression(s) from Imaging Studies Abdomen/Pelvis CT 03/28/19 21:12 IMPRESSION: 1. Recently demonstrated right lower quadrant phlegmon is improved but not resolved. No abscess or free fluid identified. 2. Previously seen cecal mural thickening is improved but not resolved. 3. Increased small bowel fluid and liquid stool within the colon in keeping with diarrhea. Enteritis and C. difficile colitis would be included in the differential. No diverticulitis or pneumoperitoneum. 4. Cholelithiasis suggested. No biliary dilatation. 5. Fibroid uterus. Individualized dose optimization techniques were used for this CT. at 2342 Reported and signed by: Marbin Nelson MD Electronically Signed: Marbin Nelson, at 23:41 EST Tel , Service support , ADDENDUM: 03/29/19 0018 IMPRESSION: 1. Recently demonstrated right lower quadrant phlegmon is improved but not resolved. No abscess or free fluid identified. 2. Previously seen cecal mural thickening is improved but not resolved. 3. Increased small bowel fluid and liquid stool within the colon in keeping with diarrhea. Enteritis and C. difficile colitis would be included in the differential. No diverticulitis or pneumoperitoneum. 4. Cholelithiasis suggested. No biliary dilatation. 5. Fibroid uterus. Individualized dose optimization techniques were used for this CT. at 2342 Reported and signed by: Marbin Nelson MD Electronically Signed: Marbin Nelson, at 0:10 EST Tel , Service support , KUB X-Ray 03/29/19 00:51 IMPRESSION: Nasogastric/orogastric tube as described above. Electronically Signed: Lyla Mischiu, MD at 2:00 EST , Service support , Dr. Love, general surgery. Operations: None Procedures: None Summary of Care Provided: Patient seen and examined on the day of discharge and appeared to be stable to be discharged home. She denied any more abdominal pain. Denied fever or chills. Denied nausea or vomiting. She was started on full liquid diet and she did very well. Her vital signs were stable. The patient is a 48 year old F patient presented to the emergency room because of lower abdominal pain with nausea and vomiting in context of recent history of ruptured appendix that was treated conservatively. She was found to have tachycardia with significant leukocytosis which was consistent with sepsis. CT scan abdomen and pelvis with contrast revealed improved right lower quadrant phlegmon but not resolved without evidence of abscess or fluid collection, improved cecal mural thickening but not improved. Patient was treated with IV fluids, IV medication and IV Flagyl and ciprofloxacin. General surgery consulted and recommended to continue conservative treatment. With above-mentioned treatment, patient symptoms improved, had no more abdominal pain. Leukocytosis resolved that she remained afebrile. Her other routine blood work was unremarkable. Other vital signs been stable. Blood culture showed no growth up to the time of discharge. Patient was started on full liquid diet and she did very well. She was discharged home in a stable medical condition, discharged on Flagyl 500 mg p.o. 3 times daily and ciprofloxacin 500 mg p.o. twice daily for 10 days of treatment, instructed to use Tylenol or Aleve as needed for pain, plan to follow-up with Dr. Watt in 1 week, recommended follow-up with PCP in 2 to 3 weeks. - Physical Exam Vitals/I&O's: Vital Signs Temp Pulse Resp BP Pulse Ox 98.3 F 95 16 131/74 H 95 03/30/19 08:25 03/30/19 08:25 03/30/19 08:25 03/30/19 08:25 03/30/19 08:25 Oxygen Delivery Method Room Air Weight: 173 lb 8.061 oz Body Mass Index (BMI) 32.8 Intake and Output for Last 24 Hours 03/28/19 03/29/19 03/30/19 23:59 23:59 23:59 Intake Total 1000 / 1000 2547.50 / 2547.50 1277.5 / 1277.5 Output Total 750 / 750 Balance 1000 / 1000 1797.50 / 1797.50 1277.5 / 1277.5 General: Alert, Oriented x3, Cooperative, No apparent distress HEENT: Atraumatic, PERRLA, EOMI, Normocephalic Oral: Moist Mucosa, No Gingival or Mucosal Lesions/ Ulcerations Neck: Supple, No JVD, Negative Carotid Bruits, Trachea Midline, Thyroid Normal Size and Texture Lungs: Clear to auscultation, Normal air movement, No rhonchi, No wheeze, No rales Cardiovascular: Regular rate, Regular Rhythm, Normal S1, Normal S2, PMI Normal Abdomen: Soft, Non Tender, Non-Distended, No Hepato-splenomegaly Extremities: No clubbing, No cyanosis, No edema Skin: No rashes, No breakdown Lymphatic: No Cervical, Supraclavicular, or Inguinal Adenopathy Neurological: Cranial nerves II-XII grossly intact, Neuro grossly intact Psych/Mental Status: Normal Affect, Appropriate Discharge Activity: Return to Normal Activity Weight Bearing Status: Full weight bearing Call your doctor if you observe: Fever of 101 or Higher, Shortness of breath, Dizziness, Fainting spells, Chest pain, Increased palpitations (irregular heartbeat), Uncontrolled pain Home Medications: Medications to take at Discharge Atenolol 50 mg PO DAILY 02/24/19 Biotin 10,000 mcg PO DAILY 03/10/19 Ciprofloxacin [Cipro] 500 mg PO BID #20 tab 03/30/19 metroNIDAZOLE [Flagyl] 500 mg PO Q8H #30 tab 03/30/19 Following Prescrptions Were Given to Patient: Ciprofloxacin [Cipro] 500 mg PO BID #20 tab Transmission Status: Received by [facility] metroNIDAZOLE [Flagyl] 500 mg PO Q8H #30 tab Transmission Status: Received by [facility] Primary Care Physician: Wei Anthony III, MD [Primary Care Provider] - Please follow up with your Primary Care Physician in: 2-3 WEEKS. Please Follow Up With: Damion Perez MD When: 1 week. Disposition: Home Minutes spent on discharge:: 32 Patient Condition:: Stable Medical Necessity - Tobacco Use Smoking Status: Never smoker Meaningful Use Info Meaningful Use Diagnoses (Choose all that apply): None applicable Code Visit Inpatient E&M: 16529 Disch Hosp
== END 2019-03-30 11:22 | disposition home or self-care (01) | DRG 871 ==
LOC: ED 03-29 00:28 → MS3 03-29 01:21
PROVIDERS: Admitting Provider Hospitalist; Emergency Provider Emergency Medicine; Family Provider Family Medicine; PCP Family Medicine; Visit Provider Hospitalist
DX: A41.9 Sepsis, unspecified organism (principal); K35.33 Acute appendicitis with perforation, localized peritonitis, and gangrene, with abscess; K56.7 Ileus, unspecified; Z86.74 Personal history of sudden cardiac arrest; K80.20 Calculus of gallbladder without cholecystitis without obstruction; R41.89 Other symptoms and signs involving cognitive functions and awareness
CPT/HCPCS: 36415; 74018; 74177; 80048; 80053; 83605; 85025; 87040; 93005; 97802; 99251; 99285; J7030; J7040; Q9967; A4216; G0463; J0744; J2405

== ENCOUNTER 2019-04-18 07:06 | Emergency (ER) | payer MEDICARE, MEDICAID, SELFPAY ==
[2019-03-29 01:38] VITALS: BMI 32.8
[2019-04-18 07:06] VITALS: BP 138/96; PULSE 90; RESP 18; TEMP 36.6; O2SAT 96; BMI 34.5
--- NOTE | 2019-04-18 07:37 | CT_ITS ---
STUDY: CT ABDOMEN AND PELVIS WITHOUT CONTRAST REASON FOR EXAM: Female, 48 years old. DIFFUSE ABD PAIN, PT STATES SHE HAS PERFORATED APPENDIX, HX-HTN RADIATION DOSAGE (If Supplied By Facility): CTDIvol = ( 10.97 ) mGy, DLP = ( 962.34 ) mGycm TECHNIQUE: Transaxial images were obtained from the dome of the diaphragm to the symphysis pubis without oral contrast, and without intravenous contrast. Sagittal and coronal images were reconstructed. Individualized dose optimization techniques were used for this CT. COMPARISON: March 28, 2019. FINDINGS: The visualized lung bases are unremarkable only for mild bibasilar dependent atelectasis. There is suggested 1.9 cm round mass within the mid to deep right lateral breast. Highly recommend correlation with mammography. The visualized portions of the heart are within normal limits. Normal liver. Normal gallbladder and extrahepatic biliary system. Normal spleen. Normal pancreas. Again seen is stable fullness with potential small mass involving the left adrenal gland. Finding is too small to adequately yield Hounsfield attenuation units but appears it may contain fat and therefore represent an adenoma. The right adrenal gland appears normal and stable. Normal right kidney. Normal left kidney. Again seen are multiple scattered mesenteric lymph nodes ranging in size from 2 mm to 1 cm, sales account representative images, sequence 2, image 58, 56 and 55. Normal visualized stomach. Normal small intestine. Normal colon. Again seen is mildly diminished, yet persistent inflammatory stranding in the right lower quadrant/pericecal location. There are multiple, stable, scattered, small pericecal lymph nodes appearing stable. There is a stable approximately 1.5 cm focal irregular density in the right posterior pericecal location, sequence 2, image 74. No definite fluid collection and no sonja abscess identified. Previously identified cecal mural thickening/edema has resolved. Previously identified fluid-filled loops of small bowel have resolved. Normal abdominal aorta. Normal inferior vena cava. Normal retroperitoneum. Normal urinary bladder. Multiple focal uterine findings consistent with fibroids are redemonstrated and appear stable. Normal abdominal wall. There is no suspicious lytic or blastic osseous finding. CT/Abdomen/Pelvis W IV Cont ONLY IMPRESSION: Possible right breast mass as above. Highly recommend correlation with mammography. Stable fullness with potential small mass involving the left adrenal gland. Please see discussion above. Mesenteric and pericecal lymph nodes are nonspecific but may represent a manifestation of inflammatory change. Diminished, yet persistent inflammatory stranding in the right lower quadrant/pericecal location. No definite fluid collection and no sonja abscess in this region. Previously identified cecal mural thickening/edema has resolved. Stable 1.5 cm density in the right retrocecal location probably represents focal fibrosis. Previously identified fluid-filled small bowel loops have resolved. Focal uterine stable findings consistent with fibroids. Electronically Signed: Reuben Camacho MD at 9:06 EST , Service support ,
--- NOTE | 2019-04-18 07:40 | ED.DCSUM_ITS ---
History of Present Illness Chief Complaint: Abd Pain Informant: Patient, Family - Abdominal Pain/Flank Pain Onset: Today - 2-3 hrs Context: - - awoke w/ sx this AM Timing: Continuous Quality: - - pain Location: Diffuse - points to periumbilical area as worst Current Severity: Severe Maximum Severity: Severe Worsened by: Nothing Relieved by: Nothing - Nausea/Vomiting/Emesis GI Symptom: Nausea. Negative for: Vomiting Onset: Today - Diarrhea/Melena/Hematochezia GI Symptom: Negative for: Diarrhea, Melena, Hematochezia Associated Symptoms: Negative for: Dysuria, Hematuria, Urgency Narrative: Patient does not provide a good history, family member is helping, but it seems that she had a perforated appendix, the patient has a high tolerance for pain, she started having symptoms suddenly 2 months ago and was seen here in the hospital and diagnosed with that. She was treated nonsurgically with antibiotics. She has had no pain for the past 2 weeks, suddenly restarted today. Prior to reviewing EMR, further details really are unknown, but upon further review it appears that initially imaging showed nothing in the patient's symptoms progressed and a perforated appendix was seen as an outpatient. She had recurrent pain a couple of weeks ago, as the family suggests, she was seen here in emergency department and admitted after the CT showed improvement of the phlegmon. The patient has been pain-free since then until this morning. Prior similar symptoms: Yes - last month - Past Medical History (1) Hypertension Status: Chronic (2) Ruptured appendix Status: Resolved (3) Vasovagal syncope Status: Resolved (4) Autism Status: Chronic Past Medical History - Allergies and Home Meds Allergies/Adverse Reactions: Allergies No Known Allergies Allergy (Verified 04/18/19 07:09) Primary Care Physician: Wei Anthony III, MD [Primary Care Provider] - Surgical History: no surgical history Smoking Status: Never smoker - Family History Maternal Family History: Reports: Hypertension, - - Thyroid disease Paternal Family History: Reports: Hypertension, Stroke, - - Atrial fibrillation Review of Systems ROS: Unable to Obtain - Limited due to condition General: Reports: Malaise. Denies: Chills, Fever Eyes: Denies: Visual changes - bilaterally, Diplopia ENT: Denies: Rhinorrhea, Sore throat Cardiovascular: Denies: Chest pain, Palpitations Respiratory: Denies: Dyspnea, Cough Gastrointestinal: Reports: Abdominal pain, Nausea. Denies: Vomiting, Diarrhea, Constipation - But only going small amounts, Melena, Hematochezia Genitourinary: Denies: Dysuria, Hematuria, Frequency Musculoskeletal: Denies: Neck pain, Back pain, Swelling, Extremity Pain Skin: Denies: Rash, Wounds Neurological: Denies: Headache, Weakness, Numbness Physical Exam Vital Signs/Narrative: Vital Signs Temp Pulse Resp BP Pulse Ox 04/18/19 07:06 97.9 F 90 18 138/96 H 96 Inital Vital Signs reviewed: Yes General: Well nourished, Well developed, No Acute Distress - Uncomfortable, nauseated Head: Normocephalic, Atraumatic Eyes: Perrl, EOMI ENT: Moist mucous membranes, No rhinorrhea Neck: Supple, Nontender Cardiovascular: Regular rate, Regular rhythm, No murmurs, Tachycardia - Mild Respiratory: No distress, CTA bilaterally, Chest nontender Abdomen: Soft, Nondistended, No masses, Tender - Diffusely, Hypoactive bowel s ounds. Negative for: Guarding, Rebound tenderness Back: Nontender, Normal Inspection. Negative for: CVA tenderness Extremities: Nontender, No edema. Negative for: Calf Tenderness Skin: Normal color, No rash, No Trauma Neurological: Alert, Oriented x3, Cranial nerves II-XII grossly intact, Normal Strength, Normal Sensation Psychological: Normal affect, Normal Mood Diagnostic/Tx/Re-eval Impressions Abdomen/Pelvis CT 04/18/19 07:37 IMPRESSION: Possible right breast mass as above. Highly recommend correlation with mammography. Stable fullness with potential small mass involving the left adrenal gland. Please see discussion above. Mesenteric and pericecal lymph nodes are nonspecific but may represent a manifestation of inflammatory change. Diminished, yet persistent inflammatory stranding in the right lower quadrant/pericecal location. No definite fluid collection and no wei abscess in this region. Previously identified cecal mural thickening/edema has resolved. Stable 1.5 cm density in the right retrocecal location probably represents focal fibrosis. Previously identified fluid-filled small bowel loops have resolved. Focal uterine stable findings consistent with fibroids. Electronically Signed: Reuben Camacho MD at 9:06 EST , Service support , 04/18/19 07:37 Abdomen/Pelvis W IV Cont ONLY [CT] Stat Laboratory Results 04/18/19 04/18/19 04/18/19 07:50 07:50 10:40 WBC 7.3 RBC 4.71 Hgb 13.3 Hct 41.2 MCV 87.5 MCH 28.2 MCHC 32.3 RDW Std Deviation 47.3 H RDW Coeff of Yoandy 14.7 H Plt Count 362 MPV 10.0 Immature Gran % (Auto) 0.300 Neut % (Auto) 64.8 Lymph % (Auto) 26.1 App[place] % (Auto) 6.7 Eos % (Auto) 1.4 Baso % (Auto) 0.7 Absolute Neuts (auto) 4.7 Absolute Lymphs (auto) 1.91 Nucleated RBC % 0 Sodium 142 Potassium 4.3 Chloride 112 H Carbon Dioxide 26.0 Anion Gap 4 L BUN 10 Creatinine 0.65 Estim Creat Clear Calc 79.00 Est GFR (MDRD) Af Amer 125 Est GFR (MDRD) Non-Af 103 BUN/Creatinine Ratio 15.4 Glucose 116 H Calcium 9.3 Total Bilirubin 0.20 AST 21 ALT 28 Alkaline Phosphatase 112 Total Protein 7.6 Albumin 3.2 Globulin 4.4 H Albumin/Globulin Ratio 0.7 L Lipase 179 Urine Color Yellow Urine Clarity Sl. Cloudy Urine pH 6.5 Ur Specific [place] 1.010 Urine Protein Negative Urine Glucose (UA) Normal Urine Ketones Negative Urine Occult Blood 10 H Urine Nitrite Negative Urine Bilirubin Negative Urine Urobilinogen Normal Ur Leukocyte Esterase 500 H Urine RBC 0-5 SEEN Urine WBC 25-50 SEEN Ur Squamous Epith Cells 0-5 SEEN Urine Bacteria 1+ Urine Mucus 0 SEEN - Medical Decision Making Patient was given IV fluids, Zofran, morphine. On reevaluation she states the pain is completely gone. Her CT shows no acute abnormalities and has resolution of the previously seen fluid-filled bowel loops, there are no signs of an obstruction. The mother continues to say that she has a high pain tolerance and that we gave her morphine and she is concerned. I kept her here for an additional 1 to 2 hours, and gave her water and crackers which she ate and drank without any difficulty or recurrence of symptoms. I reexamined her, her abdomen is completely benign without tenderness and her bowel sounds are present and normal-sounding. At this time I do not think she needs further testing or admission to the hospital given all this. I recommend follow-up, or returning if worse/recurrent. Of note, the pericecal inflammatory changes are resolved and the residual inflammatory stranding in the mesentery in the right lower quadrant is persistent but improved compared with the prior scan, and has continued to be improved with every scan she has had. She is following up with surgery within the next 1-2 weeks. ED Disposition - Plan for ED Patient: Disposition: Home or Assisted Living Diagnosis: Diffuse abdominal pain, Nausea & vomiting Instructions: ABDOMINAL PAIN, Unknown Cause, (Female) Referrals: Damion Perez MD [STAFF PHYSICIAN] - Keep Janna appointment (Return to the ER if recurrent/worse)
[2019-04-18] MEDS: 0.9% Normal Saline 1,000 ML 1000 ML IV (07:54)
[2019-04-18 08:05] LABS: Absolute Lymphocyte Count 1.91 X10^3/uL (0.83-4.51); Absolute Neutrophil Count 4.7 X10^3/uL (2.0-7.7); Basophil# 0.05 X10^3/uL; Basophil% 0.7 % (0-1); Eosinophils% 1.4 % (0-5); Hematocrit 41.2 % (37-47); Hemoglobin 13.3 g/dL (12.0-15.0); Lymphocyte # 1.91 X10^3/ul (4.0); Lymphocyte % 26.1 % (19-41); Mean Corp Hgb Conc 32.3 g/dL (32-36); Mean Corpuscular Hgb 28.2 pg (27.0-32.0); Mean Corpuscular Volume 87.5 fL (81-99); Monocyte# 0.49 X10^3/uL; Monocyte% 6.7 % (0-10); NRBC Flagged by Analyzer 0 % (0-5); Neutrophil # 4.74 X10^3/uL (2.7-7.7); Neutrophil % 64.8 % (47-70); Platelet Count 362 K/mm3 (150-450); RBC Distribution Width CV 14.7 % (11.6-14.6); RBC Distribution Width SD 47.3 fl (35.1-43.9); Red Blood Count 4.71 M/mm3 (4.2-5.4); White Blood Count 7.3 K/mm3 (4.4-11.0)
[2019-04-18] MEDS: Morphine 4 MG/ML Syringe IV (08:11)
[2019-04-18] MEDS: Ondansetron 4 MG/2 ML Vial IV (08:11)
[2019-04-18 08:12] LABS: ALB/GLOB Ratio 0.7 RATIO (0.9-2.4); AST(SGOT) 21 U/L (15-37); Alanine Aminotransfer ALT/SGPT 28 U/L (13-56); Albumin, Serum 3.2 g/dL (3.2-5.0); Alkaline Phosphatase 112 U/L (45-117); Anion Gap 4 (5-15); BUN 10 mg/dL (7-18); BUN/Creat Ratio 15.4 RATIO (10-20); Calcium,Total 9.3 mg/dL (8.5-10.1); Chloride 112 mmol/L (98-107); Creatinine, Serum 0.65 mg/dL (0.55-1.02); EST Glomerular Filtration Rate 103 mL/min (>60); Est Glom Filt Rate - Afr Amer 125 mL/min (>60); Globulin 4.4 g/dL (2.2-4.2); Glucose 116 mg/dL (74-106); Lipase 179 U/L (73-393); Potassium 4.3 mmol/L (3.5-5.1); Protein, Total 7.6 g/dL (6.4-8.2); Sodium Level 142 mmol/L (136-145)
[2019-04-18 10:46] LABS: Mucous, Urine 0 SEEN /hpf (<or=2+)
[2019-04-18 10:47] LABS: Color, Urine Yellow (Yellow); Glucose, Dipstick Normal (Normal); Ketone-Dipstick Negative (Negative); Leukocyte Esterase-Dipstick 500 /ul (Negative); Nitrite-Dipstick Negative (Negative); Occult Blood-Urine 10 /ul (Negative); Protein-Dipstick Negative (Negative); Urine Bilirubin Dipstick Negative (Negative); Urine Clarity Sl. Cloudy (Clear); Urine Urobilinogen Normal (Normal); Urine pH 6.5 (5.0 - 8.0)
[2019-04-18 10:56] LABS: Bacteria 1+ /hpf (None Seen); Red Blood Cells-Urine 0-5 SEEN /hpf (0-5); Squamous Epithelial Cells - UA 0-5 SEEN /hpf (5-10); White Blood Cells 25-50 SEEN /hpf (0-5)
--- NOTE | 2019-04-18 11:14 | DCINST.ED_ITS ---
ED Disposition - Plan for ED Patient: Disposition: Home or Assisted Living Diagnosis: Diffuse abdominal pain, Nausea & vomiting, UTI (urinary tract infection) Instructions: ABDOMINAL PAIN, Unknown Cause, (Female) Prescriptions: Smz/Tmp Ds [Bactrim Ds] 1 tab PO BID #14 tab Transmission Status: Pending to [id number] Referrals: Damion Perez MD [STAFF PHYSICIAN] - Keep Janna appointment (Return to the ER if recurrent/worse)
[2019-04-18] MEDS: Smz/Tmp Ds Tablet 1 TABLET PO (11:29)
== END 2019-04-18 11:32 | disposition home or self-care (01) ==
PROVIDERS: Emergency Provider Emergency Medicine; Family Provider Family Medicine; PCP Family Medicine
DX: R10.84 Generalized abdominal pain (principal); R11.2 Nausea with vomiting, unspecified; N63.10 Unspecified lump in the right breast, unspecified quadrant; I10 Essential (primary) hypertension; F84.0 Autistic disorder; Z79.899 Other long term (current) drug therapy
CPT/HCPCS: 74177; 80053; 81001; 83690; 85025; 87086; 87088; 87186; 96361; 96374; 96375; 99284; J7030; Q9967; A4216; J2405

== ENCOUNTER → 2019-09-22 07:56 | Outpatient (CLI) | payer MEDICARE, MEDICAID, SELFPAY ==
[2019-07-15 10:56] VITALS: BMI 34.2
[2019-09-22 08:49] LABS: AST(SGOT) 16 U/L (15-37); Alanine Aminotransfer ALT/SGPT 19 U/L (13-56); Albumin, Serum 3.1 g/dL (3.2-5.0); Alkaline Phosphatase 112 U/L (45-117); Bilirubin, Direct 0.13 mg/dL (0.00-0.30); Cholesterol 170 mg/dL (200); High Density Lipoprotein 51 mg/dL; Protein, Total 7.1 g/dL (6.4-8.2); Triglycerides 90 mg/dL; Very Low Density Lipoprotein 18 mg/dL (5-40)
== END ==
PROVIDERS: PCP Family Medicine; Referring Provider Internal Medicine Cardiovascular Disease; Visit Provider Internal Medicine Cardiovascular Disease
DX: E78.5 Hyperlipidemia, unspecified (principal)
CPT/HCPCS: 36415; 80061; 80076

== ENCOUNTER → 2019-10-13 | Outpatient (CLI) | payer MEDICARE, MEDICAID, SELFPAY ==
[2019-07-15 10:56] VITALS: BMI 34.2
--- NOTE | 2019-10-13 10:18 | STE_ITS ---
Reason For Study: PREOP CLEARANCE Stress Results Protocol: Carlo Protocol Maximum Predicted HR: 171 bpm Target HR: 145 bpm % Maximum Predicted HR: 108 % DurationHeart Rate Stage (mm:ss) (bpm) BP BASELINE 100 120/82 STAGE 1 3:00 130 140/80 STAGE 2 3:00 157 120/64 STAGE 3 3:00 184 144/62 RECOVERY 101 130/70 Stress Duration: 9:00 mm:ss Maximum Stress HR: 184 bpm Baseline Echocardiogram Findings The estimated ejection fraction is 65 %. Stress Echo Wall motion Data Resting WM Intermediate WM Stress WM Resting Wall Motion Wall Motion Stress No regional wall motion No regional wall motion abnormalities noted. abnormalities noted. EKG Data The baseline ECG displays normal sinus rhythm. The patient exercised according to the regular Carlo protocol for a total duration of 9:01. The maximum heart rate attained was 184 beats per minute. This was 107% of maximum predicted heart rate. The patient exercised into stage 4 of the Carlo protocol. At peak exercise, upsloping ST changes only were noted, which did not meet the criteria for ischemia. No clinical angina was noted. Interpretation Summary The estimated ejection fraction is 65 %. Normal, adequate, treadmill echocardiogram. Negative for ischemia by EKG and echocardiographic criteria. No anginal symptoms noted. Rare PVC noted. Appropriate blood pressure response to exercise. Final LVEF=75%. Test terminated due to dyspnea. No complications. Ordering Physician: Leandro Salomon Referring Physician: Leandro Salomon Performed By: Maria Fernanda Guillen RDCS
== END | disposition home or self-care (01) ==
LOC: CVS 10:18
PROVIDERS: PCP Family Medicine; Referring Provider Internal Medicine Cardiovascular Disease; Visit Provider Internal Medicine Cardiovascular Disease
DX: Z01.810 Encounter for preprocedural cardiovascular examination (principal); R41.89 Other symptoms and signs involving cognitive functions and awareness; R00.0 Tachycardia, unspecified; I10 Essential (primary) hypertension
CPT/HCPCS: 93017; 93350

== ENCOUNTER → 2019-10-15 | Outpatient (CLI) | payer MEDICARE, MEDICAID, SELFPAY ==
[2019-07-15 10:56] VITALS: BMI 34.2
--- NOTE | 2019-10-15 10:44 | ECHOD_ITS ---
Reason For Study: Pre-op clearance, Abn. EKG Procedure This was a 2D Doppler, Color Flow transthoracic echocardiogram. Exam performed in department. Left Ventricle Normal size and thickness. The estimated ejection fraction is 65 %. Normal diastology for age. No regional wall motion abnormalities noted. Right Ventricle Normal size and thickness. Normal systolic function. Atria Normal left atrium. Normal right atrium. Normal atrial septum. Mitral Valve The mitral valve is structurally normal. No prolapse or stenosis seen. Trivial mitral valve insufficiency. Tricuspid Valve Normal tricuspid valve. Trivial tricuspid valve insufficiency. Right ventricular systolic pressure estimated to be 29 mmHg. Aortic Valve Normal aortic valve. Trisinus/trileaflet aortic valve. Pulmonic Valve Normal pulmonic valve. Trivial pulmonic valve insufficiency. Great Vessels Normal aortic root. Normal arch. Normal inferior vena cava. Inferior vena cava collapse with sniff. Pericardium/Pleural No pericardial effusion. MMode/2D Measurements & Calculations LVIDd: 4.3 cm IVSd: 0.84 cm Ao root diam: 2.8 cm LVIDs: 2.2 cm LVPWd: 0.88 cm RVDd: 3.2 cm FS: 49.5 % LAV(MOD-bp): 44.8 ml LVAd ap4: 26.3 cm2 SV(MOD-sp4): 48.8 ml LAV(MOD-bp) Indexed: 24.8 ml/m2 EDV(MOD-sp4): 75.1 ml LAV(MOD-sp2): 35.1 ml EDV(sp4-el): 77.6 ml LAV(MOD-sp4): 50.8 ml LVAs ap4: 13.7 cm2 ESV(MOD-sp4): 26.3 ml ESV(sp4-el): 25.5 ml EF(MOD-sp4): 65.0 % EF(sp4-el): 67.1 % SV(sp4-el): 52.1 ml LA A4 area: 19.0 cm2 LA dimension(2D): 3.7 cm RA A4 area: 14.7 cm2 Doppler Measurements & Calculations MV E max anuel: 99.3 cm/sec Lat Peak E' Anuel: 12.3 cm/sec Med Peak E' Anuel: 10.8 cm/sec MV A max anuel: 83.1 cm/sec E/E' lat: 8.1 E/E' med: 9.2 MV E/A: 1.2 Ao V2 max: 146.1 cm/sec LV V1 max: 115.8 cm/sec PA V2 max: 88.7 cm/sec Ao max P.5 mmHg LV V1 max P.4 mmHg TR max anuel: 249.2 cm/sec TR max P.9 mmHg Interpretation Summary The estimated ejection fraction is 65 %. Normal diastology for age. Trivial mitral valve insufficiency. Trivial tricuspid valve insufficiency. Right ventricular systolic pressure estimated to be 29 mmHg. There is no comparison study available. Ordering Physician: Leandro Salomon Referring Physician: Leandro Salomon Performed By: Gilda He RDCS
== END | disposition home or self-care (01) ==
LOC: CVS 10:44
PROVIDERS: PCP Family Medicine; Referring Provider Internal Medicine Cardiovascular Disease; Visit Provider Internal Medicine Cardiovascular Disease
DX: Z01.810 Encounter for preprocedural cardiovascular examination (principal); R94.31 Abnormal electrocardiogram [ECG] [EKG]; R00.0 Tachycardia, unspecified; R41.89 Other symptoms and signs involving cognitive functions and awareness
CPT/HCPCS: 93306

== ENCOUNTER 2019-10-30 05:39 | Day surgery (SDC) | payer MEDICARE, MEDICAID, SELFPAY ==
[2019-07-15 10:56] VITALS: BMI 34.2
--- NOTE | 2019-10-24 08:35 | HP.PCM_ITS ---
History and Physical Date of Admission: 10/24/19 ? HPI: The patient is a 48 year old female presenting for pre-operative visit. She is scheduled for?Hysteroscopy D&C?with polyp resection, for?endocervical polyps on?10/30/2019. ??Procedure discussed along with risks, benefits and complications. ?Other alternatives discussed for management. Consent form signed??Yes.? PAST MEDICAL HISTORY PAST MEDICAL HISTORY Diagnosis Date ? Acute appendicitis with perforation and localized peritonitis 03/29/2019 ? 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 Menometrorrhagia 10/19/2011 ? Papanicolaou smear of cervix with atypical squamous cells of undetermined significance (ASC-US) 1994 ? Tachycardia, unspecified 11/19 ? ? PAST SURGICAL HISTORY PAST SURGICAL HISTORY Procedure Laterality Date ? FNA WITH IMAGING ? 11/28/11 ? U/S FNA UOQ right breast cyst ? ? CURRENT MEDICATIONS Current Outpatient Medications Medication Sig Dispense Refill ? ondansetron orally disintegrating (ZOFRAN ODT) 4 mg disintegrating tablet EVERY 8 HOURS NEEDED ? ? ? atenolol (TENORMIN) 50 mg tablet Take 1 tablet by mouth once daily. 90 tablet 3 ? BIOTIN ORAL Take by mouth once daily. ? ? ? No current facility-administered medications for this visit.? ? ALLERGIES:?Patient has no known allergies. ? PERSONAL HISTORY:? SOCIAL HISTORY Social History ? Tobacco Use ? Smoking status: Never Smoker ? Smokeless tobacco: Never Used Substance Use Topics ? Alcohol use: No ? Drug use: No ? FAMILY HISTORY:? FAMILY HISTORY FAMILY HISTORY Problem Relation Age of Onset ? Diabetes Maternal Grandmother ? ? Stroke Maternal Grandmother ? ? Hypertension Mother ? ? REVIEW OF SYMPTOMS: GENERAL: denies fevers or chills ENDOCRINOLOGY: has not been on steroids Cardiology : denies palpitations or chest pain Respiratory: denies SOB or cough Hematology: denies history of prolonged bleeding or easy bruising or VTE Allergy: Denies history of personal or family history of allergy to anesthesia ? ? PHYSICAL EXAMINATION: ? VITALS:?Last menstrual period 06/08/2019. ? GENERAL:??The patient is well nourished, well hydrated in no acute distress. ?, The patient is oriented to time, place, and person. NECK:?Supple. No lynphadenopathy, normal thyroid, no thyromegaly. LUNGS:?Clear to auscultation bilaterally. no wheezes, rhonchi or rales HEART:?Regular rate and rhythm, Normal heart sounds and No murmurs or gallops ? ? IMPRESSION:?endocervical polyps ? PLAN:???The risks/benefits/alternatives and personal involved for the planned?hysteroscopy D&C with polyp removal/resection?were reviewed with the patient. Her questions were answered to her satisfaction and she desires to proceed. ?Consent was signed. ?I reviewed with her postop instructions and expectations. ? ? I have reviewed and updated past medical and surgical history, medications and allergies? this history and physical was completed in my office on 10/22/2019. Procedure Criteria Procedure Type: Elective COVID Risk Discussion: The surgeon/proceduralist and patient have discussed in detail the risk of exposure to and/or potential harm posed by the COVID-19 virus with having a surgery/procedure at this time versus the risk of delaying the surgery/procedu re. It is not possible to know either the risk of delaying the surgery or procedure or chance of getting an infection with perfect accuracy, but a joint decision was made between the patient and the surgeon/proceduralist to proceed at this time with the scheduled surgery/procedure as indicated on the consent form.
[2019-10-30] VITALS (7 sets, daily range): BP systolic 109–136; BP diastolic 64–80; PULSE 61–82; RESP 15–16; TEMP 36.2–36.8; O2SAT 97–100; BMI 35.5
[2019-10-30] MEDS: Lactated Ringers 1,000 ML 100 ML IV (06:30)
[2019-10-30] MEDS: Acetaminophen 500 MG Tablet 1000 MG PO (06:39)
[2019-10-30] MEDS: Ketorolac 30 MG/ML Syringe IV (06:40)
[2019-10-30 06:59] LABS: Internal QC Validated? YES +Cl - CLEAR BKGD; Pregnancy, Serum, hCG Quali. NEGATIVE Negative
--- NOTE | 2019-10-30 07:19 | EKG12_ITS ---
Test Reason : PREOP Blood Pressure : / mmHG Vent. Rate : 058 BPM Atrial Rate : 058 BPM P-R Int : 186 ms QRS Dur : 076 ms QT Int : 388 ms P-R-T Axes : 026 034 001 degrees QTc Int : 380 ms Sinus bradycardia with sinus arrhythmia Otherwise normal ECG When compared with ECG of 29-MAR-2019 00:08, T wave inversion no longer evident in Anterior leads Confirmed by CASSIE OCAMPO, ANNELISE ([id number]), metropolitan editor VIBHA APARICIO ([id number]) on 10/31/2019 9:18:46 AM Referred By: Kristy Salguero Confirmed By:REBECCA MATTHEWS MD
--- NOTE | 2019-10-30 07:30 | EMB_PTH ---
PATIENT: TONY DAVISON [place] [facility] [place][id number] AGE/SX: 48/F ROOM: RE10/30/[address]: Dr. Kristy Salguero MD : [id number] BED: DIS: 10/30/2019 SPEC #: [id number] RECD: 10/30/19 09:40 STATUS: SERA SHERYL #: [id number] [place]: 10/30/19 07:[address]: Kristy Salguero DEPT: SURGICAL PATHOLOGY RECD BY: Lala Meza ENTERED: 10/30/19 10:23 SP TYPE: ENDOM BX/C SANNA DR: Dr. Wei Anthony III, MD Tissues: Endometrium, NOS Procedures: Surgery Specimen Level IV HEADER OPERATION: Hysteroscopy, D & C, removal of endocervical polyp PRE-OP DIAGNOSIS: Endocervical polyps TISSUE SUBMITTED: Endometrial curettings, endocervical polyps MICROSCOPIC DIAGNOSIS Endometrial curettings and endocervical polyp, biopsy: Fragments of benign endocervical polyp, inflamed. Fragments of mildly disordered proliferative endometrium. AM:mag 10/31/19 COMMENT Case has been reviewed in consultation with Dr. Hinojosa who concurs with the above diagnosis. IDC:SWATHI MICROSCOPIC DESCRIPTION Slides are reviewed. GROSS DESCRIPTION Received in fixative is one container labeled with the patient's name and designated endometrial curettings, endocervical polyp. The specimen consists of multiple irregular fragments of boggs-pink soft tissue that in aggregate measure 3 x 2.5 x 0.3 cm. Also present in the container are four variable sized pieces of boggs-pink focally congested polyps measuring in aggregate 3 x 2.5 x 0.5 cm. The polyps measure 1.5 to 2 cm in greatest dimension. One of the largest polyps is bisected. The entire specimen is submitted in three cassettes as follows: 1-2 - polyp, 3 - boggs-pink soft tissue. / SWATHI:mag 10/30/19 TC:5 [facility]: [id number]
--- NOTE | 2019-10-30 07:52 | DCINST_ITS ---
Discharge Diet: No Restrictions Discharge Activity: Return to Normal Activity, May Shower, May Take a Tub Bath - in 2 weeks. May shower in (days): 1 May resume sexual activity in: 2 weeks Call your doctor if your incision/area has: Increased Pain/ Swelling, Foul Smelling Discharge Call your doctor if you observe: Fever of 101 or Higher, Using more than one pad per hour, Uncontrolled pain Allergies/Adverse Reactions: Allergies No Known Allergies Allergy (Verified 10/30/19 06:12) Medications to take at Discharge Atenolol 50 mg PO DAILY 02/24/19 Biotin 10,000 mcg PO DAILY 03/10/19 Primary Care Physician: Wei Anthony III, MD [Primary Care Provider] - Test Results: Test results from this visit will be discussed in further detail at your follow- up appointment, if applicable. Please Follow Up With: Kristy Salguero MD - [phone] When: as needed or for annual exam
--- NOTE | 2019-10-30 08:30 | PCM.OPRPT ---
Report of Operation Date of Procedure: 10/30/19 Pre-Operative Diagnosis: cerivcal polyps Post-Operative Diagnosis: same Surgery/Procedure Performed:: Hysteroscopy D&C with removal of endocervical polyps Description of Surgical Findings:: Polyps protruding from the cervical os. Normal-appearing endometrium. geriatric nursing assistant: None Type of Anesthesia:: MAC/Supplemental/Local Anesthesiologist: Santino Cervantes Special Medications: none Specimen's removed: Endometrial curettings and endocervical polyps Drains: none Estimated Blood Loss (mL): 10 Fluids Replaced: 800 Description of Procedure: The patient was taken to the OR where she was prepped and draped in dorsal lithotomy position. The weighted speculum was placed in the vagina and the anterior lip of the cervix was grasped with a single-tooth tenaculum. Endocervical polyps were protruding from the office. Several removed with polyp forceps and a twisting motion. A paracervical block was administered with Xylocaine with dilute epinephrine solution. The cervix was dilated serially with Hegar dilators. The 5mm hysteroscope was placed into the uterine cavity and the above findings were noted. Bilateral tubal ostia were identified. The hysteroscope was removed. A gentle sharp curettage was done of the uterine cavity. The instruments were removed from the vagina. The specimen was handed off and sent to pathology. All sponge and needle counts were correct. Vaginal sweep was performed by me. The patient was awakened and taken to the recovery room in stable condition. Hysteroscopic ins: 1200cc normal saline Hysteroscopic outs:1050cc Findings: Endometrial cavity: Normal, no fibroids or polyps noted Cervix: Normal Vagina: Normal Grafts/Implants Used: none - Complications none - Admit VTE Documentation VTE Present on Admission: No VTE Mechan Device Prophylaxis: SCD's VTE Pharm Prophylaxis ordered?: No
== END 2019-10-30 09:19 | disposition home or self-care (01) ==
LOC: SDC 05:41 → AC 05:42
PROVIDERS: PCP Family Medicine; Referring Provider Obstetrics & Gynecology; Visit Provider Obstetrics & Gynecology
PROC: 0UB98ZZ Excision of Uterus, Via Natural or Artificial Opening Endoscopic (ICD-10-PCS; CPT 58558; principal; 2019-10-30 07:15)
DX: N84.1 Polyp of cervix uteri (principal)
CPT/HCPCS: 00952; 58558; 84703; 87635; 88305; 93005; G2023; J7120; J2405; U0003

== ENCOUNTER 2020-03-09 04:25 | Emergency (ER) | payer MEDICARE, MEDICAID, SELFPAY ==
[2019-10-30 06:14] VITALS: BMI 35.5
[2020-03-09 04:25] VITALS: BP 133/68; PULSE 85; RESP 16; TEMP 35.7; O2SAT 100; BMI 37.7
[2020-03-09 04:29] VITALS: BP 105/55; PULSE 86; RESP 17; O2SAT 95
--- NOTE | 2020-03-09 04:47 | EKG12_ITS ---
Test Reason : SYNCOPE Blood Pressure : / mmHG Vent. Rate : 084 BPM Atrial Rate : 084 BPM P-R Int : 182 ms QRS Dur : 078 ms QT Int : 350 ms P-R-T Axes : 027 028 -09 degrees QTc Int : 413 ms Normal sinus rhythm T wave abnormality, consider inferior ischemia Abnormal ECG Confirmed by DANY OCAMPO, WANDER ([id number]), technical editor OLIVIA ARREAGA ([id number]) on 03/10/2020 10:51:31 AM Referred By: BRANDON Confirmed By:WANDER SAENZ MD
--- NOTE | 2020-03-09 04:48 | ED.DCSUM_ITS ---
History of Present Illness Chief Complaint: Syncope Informant: Patient, Family Narrative: Patient had a syncopal episode while getting up to go to the bathroom tonight. She got up from the recliner and walked in the bathroom got lightheaded and passed out. She struck the right side of her neck on something in the bathroom. Family heard a noise when she fell. She did not hit her head. She is not complaining of any pain in her head or injury to her head or any other part of her body other than the right side of her neck. Hurts to move her neck to the side. No previous injury to this area. No home treatment. History of remote syncope in 2005 per patient. She has been on atenolol ever since. She was evaluated at [facility] at that time. Had a normal echocardiogram with trivial mitral valve and tricuspid valve regurgitation the summer preop. She had a normal stress echocardiogram as well. Ejection fraction. No history of CHF. She is unsure if she got up too quickly in the middle the night. - Past Medical History (1) Pre-operative cardiovascular examination Status: Acute (2) Abnormal EKG Status: Chronic (3) Abnormal uterine bleeding due to endocervical polyp Status: Chronic (4) Autism Status: Chronic (5) Developmental disability Status: Chronic (6) Double vagina Status: Chronic (7) Hyperlipidemia Status: Chronic (8) Hypertension Status: Chronic (9) Menometrorrhagia Status: Chronic (10) Tachycardia Status: Chronic (11) Unresponsive episode Status: Chronic Comment: Pt and sister stated in 2004, passed out at home, couldn't breathe: code called, CPR started. Was shipped to [facility] and was there for 1 week. (12) Ruptured appendix Status: Resolved Past Medical History - Allergies and Home Meds Allergies/Adverse Reactions: Allergies No Known Allergies Allergy (Verified 10/30/19 06:12) Primary Care Physician: Wei Anthony III, MD [Primary Care Provider] - Prior records reviewed: Yes Past Medical History: - - See problem list Surgical History: no surgical history Lives: With Family Smoking Status: Never smoker Alcohol: None Drugs: None - Family History Maternal Family History: Family History (Last Reviewed 07/15/19 @ 10:56 by Tessa Lyles) Mother Hypertension Hyperlipidemia Family History: Reports: Hypertension, - - Thyroid disease Paternal Family History: Family History (Last Reviewed 07/15/19 @ 10:56 by Tessa Lyles) Mother Hypertension Hyperlipidemia Family History: Reports: Hypertension, Stroke, - - Atrial fibrillation Review of Systems General: Denies: Chills, Fever, Sweats Eyes: Denies: Visual changes - bilaterally, Diplopia ENT: Denies: Rhinorrhea, Sore throat Cardiovascular: Denies: Chest pain, Palpitations Respiratory: Denies: Dyspnea, Cough, Dyspnea on exertion Gastrointestinal: Denies: Abdominal pain, Nausea, Vomiting, Diarrhea, Melena, Hematochezia Genitourinary: Denies: Dysuria, Hematuria, Frequency Musculoskeletal: Reports: Neck pain. Denies: Back pain, Extremity Pain Skin: Denies: Rash, Wounds Neurological: Denies: Headache, Weakness, Numbness Physical Exam Vital Signs/Narrative: Vital Signs Temp Pulse Resp BP Pulse Ox 03/09/20 04:29 86 17 105/55 L 95 03/09/20 04:25 96.3 F L 85 16 133/68 H 100 General: Well nourished, Well developed, No Acute Distress Head: Normocephalic, Atraumatic. Negative for: Trauma, Tenderness Eyes: Perrl, EOMI ENT: Moist mucous membranes, No rhinorrhea Neck: Supple, - - Tender on the right side of the paracervical spine and trapezius with no swelling or deformity. Mild decreased range of motion secondary pain. No midline tenderness. Cardiovascular: Regular rate, Regular rhythm, No murmurs Respiratory: No distress, CTA bilaterally, Chest nontender Abdomen: Soft, Nontender, Nondistended, Normal bowel sounds Back: Nontender, Normal Inspection Extremities: Nontender, No edema Skin: Normal color, No rash Neurological: Alert, Oriented x3, Cranial nerves II-XII grossly intact, Normal Strength, Normal Sensation Psychological: Normal affect, Normal Mood Diagnostic/Tx/Re-eval - Medical Decision Making Comfortably upon arrival. Given Toradol for the pain in her neck. Lab work and EKG obtained. EKG shows sinus rhythm at a rate of 84. T wave inversion old lead III and aVF. No acute ischemic findings. No arrhythmia. Patient had no arrhythmias on the monitor. CBC shows a very mild leukocytosis of 14,000. El ectrolytes unremarkable. My interpretation of the C-spine x-ray shows chronic changes with no acute fracture. Reevaluation the patient is resting comfortably. Feels better after IV fluids. I feel she can be discharged. I low suspicion for acute emergent cause of her symptoms. She may have had a vasovagal syncope ED Disposition - Plan for ED Patient: Disposition: Home or Assisted Living Diagnosis: Syncope, Neck strain Instructions: ED VAGAL SYNCOPE Referrals: Wei Anthony III, MD [Primary Care Provider] -
--- NOTE | 2020-03-09 04:48 | RAD_ITS ---
STUDY: X-RAY - CERVICAL SPINE REASON FOR EXAM: Female, 49 years old patient struck the right side of the neck on the bathtub after syncope and fall this morning. TECHNIQUE: 4 view(s) of the cervical spine were obtained. COMPARISON: None FINDINGS: There are degenerative changes of the anterior atlantoaxial articulation. Normal odontoid process. There is straightening of the normal cervical lordosis. There is multi-level endplate spondylosis. There is mild multi-level degenerative disc disease with multilevel disc space narrowing. The posterior elements of normal alignment. The spinous processes appear to be intact. Appears to be interstitial thickening at the lung apices. Prevertebral paraspinal soft tissues are within normal limits. There is no demonstrated fracture of the cervical spine. RAD/Cerv Spine 2 or 3 Views IMPRESSION: No radiographic evidence of acute compression or displaced fracture of the cervical spine. Electronically Signed: Debora Ayon MD at 5:44 EST , Service support ,
[2020-03-09] MEDS: Ketorolac 15 MG/ML Vial IV (05:10)
[2020-03-09 05:12] LABS: Absolute Lymphocyte Count 2.56 X10^3/uL (0.83-4.51); Absolute Neutrophil Count 10.3 X10^3/uL (2.0-7.7); Basophil# 0.05 X10^3/uL; Basophil% 0.4 % (0-1); Eosinophil# 0.18 X10^3/uL; Eosinophils% 1.3 % (0-5); Hematocrit 43.8 % (37-47); Hemoglobin 14.3 g/dL (12.0-15.0); Lymphocyte # 2.56 X10^3/ul (4.0); Lymphocyte % 18.3 % (19-41); Mean Corp Hgb Conc 32.6 g/dL (32-36); Mean Corpuscular Hgb 28.9 pg (27.0-32.0); Mean Corpuscular Volume 88.7 fL (81-99); Mean Platelet Vol. 9.8 fl (6.2-12.0); Monocyte% 5.7 % (0-10); NRBC Flagged by Analyzer 0 % (0-5); Neutrophil # 10.33 X10^3/uL (2.7-7.7); Neutrophil % 73.9 % (47-70); Platelet Count 394 K/mm3 (150-450); RBC Distribution Width CV 13.7 % (11.6-14.6); RBC Distribution Width SD 44.5 fl (35.1-43.9); Red Blood Count 4.94 M/mm3 (4.2-5.4)
[2020-03-09 05:26] LABS: Anion Gap 5 (5-15); BUN 16 mg/dL (7-18); BUN/Creat Ratio 17.8 RATIO (10-20); Calcium,Total 9.1 mg/dL (8.5-10.1); Chloride 105 mmol/L (98-107); EST Glomerular Filtration Rate 70 mL/min (>60); Est Glom Filt Rate - Afr Amer 85 mL/min (>60); Estimated Creatinine Clearance 56.43 ml/min; Glucose 131 mg/dL (74-106); Potassium 4.2 mmol/L (3.5-5.1); Sodium Level 138 mmol/L (136-145)
[2020-03-09 06:02] VITALS: BP 112/61; PULSE 93; RESP 20; O2SAT 100
== END 2020-03-09 06:03 | disposition home or self-care (01) ==
PROVIDERS: Emergency Provider Emergency Medicine; PCP Family Medicine
DX: R55 Syncope and collapse (principal); S16.1XXA Strain of muscle, fascia and tendon at neck level, initial encounter; X58.XXXA Exposure to other specified factors, initial encounter
CPT/HCPCS: 72040; 80048; 85025; 93005; 96374; 99285; J7030; A4216

== ENCOUNTER 2023-07-23 02:52 | Emergency (ER) | payer MEDICARE, MEDICAID, SELFPAY ==
[2023-07-23] VITALS (7 sets, daily range): BP systolic 116–154; BP diastolic 48–76; PULSE 68–106; RESP 16–18; TEMP 36.6–36.8; O2SAT 98–100; BMI 35.1
--- NOTE | 2023-07-23 02:57 | CT_ITS ---
INDICATION: Pain flank EXAMINATION: CT ABDOMEN AND PELVIS WITHOUT CONTRAST - CT Abdomen And Pelvis W/O Contrast Injection TECHNIQUE: Helically acquired images were obtained of the abdomen and pelvis without oral or IV contrast. A radiation dose optimization technique was used for this scan. IV Contrast dosage and agent: None. Oral contrast: None. RADIATION DOSAGE (If Supplied By Facility): CTDIvol = ( 14.22 ) mGy, DLP = ( 735.44 ) mGycm COMPARISON: 04/18/2019 (report only) FINDINGS: LOWER CHEST: Lung bases are clear. No cardiomegaly or pericardial effusion. LIVER: The liver is normal in size, shape, and attenuation. No focal mass. GALLBLADDER AND BILIARY TREE: The gallbladder is normally distended. No gallstones. No gallbladder wall thickening or edema. No intra- or extrahepatic biliary ductal dilation. PANCREAS: No focal cystic or solid mass. SPLEEN: Normal size without focal cystic or solid mass. ADRENAL GLANDS: There is a 1.4 cm left adrenal nodule measuring -1 HU compatible with a benign lipid rich adenoma. Normal right adrenal gland. KIDNEYS AND URETERS: Normal renal size and position. No hydronephrosis or nephrolithiasis. PERITONEUM: No ascites or free air. No other fluid collection. BOWEL: The stomach is unremarkable. Normal caliber small bowel. No obstruction. No colonic wall thickening or inflammatory changes. Scattered colonic diverticula. No evidence of acute appendicitis. LYMPH NODES: No enlarged mesenteric or retroperitoneal lymph nodes. VESSELS: Aorta is non-dilated. URINARY BLADDER: Unremarkable. REPRODUCTIVE ORGANS: Small uterine fibroid suspected. No adnexal abnormalities. ABDOMINAL WALL: No discrete abdominal or pelvic wall hernia. BONES: No acute or suspicious osseous abnormality. CT/Abdomen/Pelvis without Cont IMPRESSION: No acute findings to explain the patient''s symptomatology. Chronic findings as above. Electronically Signed: Elan Ramirez MD at 4:15 EDT ,
--- NOTE | 2023-07-23 02:58 | EDS_ITS ---
HPI HPI - GI History of Present Illness Chief Complaint: Abd Pain Informant: patient and parent Abdominal Pain/Flank Pain Onset: Today (Just prior to arrival, woke up with the symptoms within the last hour or 2) Context: Sudden Onset Timing: Continuous Quality: Aching Location: Right Flank Current Severity: Severe Maximum Severity: Severe Worsened by: Movement Relieved by: Nothing Nausea/Vomiting/Emesis GI Symptom: Negative for Nausea or Vomiting Diarrhea/Melena/Hematochezia GI Symptom: Positive for Diarrhea; Negative for Melena or Hematochezia Onset: Today Stool Quality: Positive for Loose Episodes: 1 Associated Symptoms Associated Symptoms: Negative for Dysuria, Frequency or Hematuria Narrative Narrative: Patient woke up with severe pain in her right side. Never had this before, but the last time she had severe pain in her abdomen she was diagnosed with a ruptured appendicitis. No recent illness. No injury. No problems urinating. She had bowel movements, it was loose, it did not change the pain afterwards. Mother provides most of the history, patient has a history of autism and developmental disability, but she can answer ROS. [facility] Medical History Abnormal EKG Abnormal uterine bleeding due to endocervical polyp Autism Developmental disability Hyperlipidemia Hypertension Pre-operative cardiovascular examination Tachycardia Unresponsive episode Home Medications atenolol 50 mg tablet 50 mg PO DAILY blood pressure 02/24/19 [History Last Taken 10/30/19 04:00] biotin 10,000 mcg capsule 10,000 mcg PO DAILY hair 03/10/19 [History Last Taken 03/03/19] Allergy/AdvReac Type Severity Reaction Status Date / Time No Known Allergies Allergy Verified 07/23/23 02:54 Family History Mother Hypertension Hyperlipidemia Social History Smoking Status: Never smoker ROS [facility] ED Constitutional Constitutional ED: Denies chills or fever(s) Eyes Eyes: Denies change in vision or diplopia ENT ENT ED: Denies rhinorrhea or sore throat Cardiovascular Cardiovascular: Denies chest pain or palpitations Respiratory/Chest Respiratory/Chest: Denies cough or dyspnea Gastrointestinal Gastrointestinal: Reports abdominal pain; Denies diarrhea, nausea or vomiting Genitourinary Genitourinary ED: Reports as per HPI and flank pain; Denies dysuria or hematuria Musculoskeletal Musculoskeletal: Reports back pain; Denies neck pain Integumentary Denies abscess or rash Neurologic Neurologic: Denies headache(s), paresthesias or weakness Psychiatric Psychiatric: Reports anxiety; Denies suicidal thoughts EXAM Physical Exam Const Vital Signs: 07/23/23 02:54 07/23/23 02:58 07/23/23 03:25 Temperature 97.9 F 97.9 F Temperature Source Temporal Temporal Pulse Rate 81 87 98 Respiratory Rate 18 18 16 Blood Pressure 154/76 H 154/76 H 148/68 H Blood Pressure Mean 102 102 94 Pulse Ox 100 100 99 Oxygen Delivery Method Room Air Room Air Room Air 07/23/23 03:58 07/23/23 04:00 Temperature 98.3 F 98.3 F Temperature Source Temporal Temporal Pulse Rate 106 H 68 Respiratory Rate 18 18 Blood Pressure 118/54 L 117/48 L Blood Pressure Mean 75 71 Pulse Ox 100 99 Oxygen Delivery Method Room Air Positive well nourished and well developed General Appearance ED: well developed and NAD HEENT Reports moist mucous membranes normocephalic and atraumatic Eyes PERRL and EOMs intact bilaterally Neck full ROM and supple Resp normal respiratory effort and clear to auscultation bilaterally Cardio regular rate, regular rhythm and no murmurs GI non-distended GI Narrative: Diffusely tender throughout right side more so on the right flank and right upper quadrant. No bony rib tenderness. Auscultation: normoactive bowel sounds Palpation: soft Back/Spine Back/Spine Narrative: Back normal on inspection no rash General Back: CVA tenderness right and other FROM Extremity normal to inspection General Extremety ED: Negative for edema, pulses abnormal or tenderness General Extremity: Negative for edema or pulses abnormal Neuro oriented x3, CN's II-XII intact bilaterally and no sensory deficits noted Sensorium / Orientation: awake and alert Motor Exam: strength 5/5 throughout Skin no rashes or lesions noted and no wounds MDM MDM MDM Narrative Medical decision making narrative: Patient was given morphine, Toradol, Zofran and on reevaluation she states the pain is completely gone, she can move and the pain is no longer there at all. She feeling much better and asymptomatic. The workup really is unremarkable. Differential includes biliary colic, renal colic from stone or infection, GI pain, musculoskeletal etiologies. I am not concerned about a PE here, she has no tachycardia and her pulse ox is 100% on room air, and her discomfort is nonpleuritic. She has no urinary symptoms recently, urine shows 500 leukocyte Estrace, but is otherwise normal. I reviewed the CT images as well as the report which I agree with, it is negative for anything acute that explains the patient's symptoms. Since CT is less sensitive/specific for cholelithiasis, I did a bedside ultrasound given that the patient presents during donor relations officer and ultrasound is not available in the hospital. She has a negative sonographic Suarez and no evidence of cholelithiasis or thickened gallbladder wall. I am sending her urine for a culture since I do not have any ancillary evidence of etiology for her discomfort, but otherwise I think she is fine to be discharged home since we see no evidence of an emergent medical condition. She urinated for us after the CT, so less likely to be a stone that she passed prior to imaging. Discussed all this with the mother and patient, and encouraged to return if severe pain returns and are comfortable with that plan. Lab Data Attestation: I reviewed the patient's lab results. Labs: Laboratory Results - last 24 hr 07/23/23 07/23/23 03:23 04:02 WBC 11.3 H RBC 4.58 Hgb 13.4 Hct 40.4 MCV 88.2 MCH 29.3 MCHC 33.2 RDW Std Deviation 44.4 H RDW Coeff of Yoandy 13.8 Plt Count 344 MPV 10.1 Immature Gran % (Auto) 0.400 Neut % (Auto) 59.2 Lymph % (Auto) 31.5 [place] % (Auto) 6.4 Eos % (Auto) 2.0 Baso % (Auto) 0.5 Absolute Neuts (auto) 6.7 Absolute Lymphs (auto) 3.57 Nucleated RBC % 0 Sodium 139 Potassium 3.7 Chloride 108 H Carbon Dioxide 27.0 Anion Gap 4 L BUN 15 Creatinine 0.75 Estim Creat Clear Calc 92.30 Est GFR (MDRD) Af Amer 103 Est GFR (MDRD) Non-Af 85 BUN/Creatinine Ratio 19.9 Glucose 131 H Calcium 8.7 Total Bilirubin 0.40 AST 19 ALT 24 Alkaline Phosphatase 123 H Total Protein 7.1 Albumin 3.2 Globulin 3.9 Albumin/Globulin Ratio 0.8 L Lipase 48 Urine Color Yellow Urine Clarity Clear Urine pH 6.0 Ur Specific [place] 1.030 Urine Protein 30 H Urine Glucose (UA) Normal Urine Ketones Negative Urine Occult Blood 10 H Urine Nitrite Negative Urine Bilirubin Negative Urine Urobilinogen Normal Ur Leukocyte Esterase 500 H Urine RBC 0 SEEN Urine WBC 0-5 SEEN Ur Squamous Epith Cells 0-5 SEEN Calcium Oxalate Crystal RARE Urine Bacteria RARE Urine Mucus 0 SEEN Radiography Diagnostic Testing: Clinical Impression(s) from Imaging Studies Abdomen/Pelvis CT 07/23/23 02:57 IMPRESSION: No acute findings to explain the patient''s symptomatology. Chronic findings as above. Electronically Signed: Elan Ramirez MD at 4:15 EDT , Discharge Plan Triage Chief Complaint: Abd Pain Other Complaint: Flank Pain ED Provider: Adriano Hofmfan Dx/Rx/DC Orders Clinical Impression: Acute right flank pain Instructions: ED Flank Pain, Uncertain Cause Prescriptions: No Action atenolol 50 MG tablet 50 mg PO DAILY biotin 10,000 MCG capsule 10,000 mcg PO DAILY Primary Care Provider: Bruno Paredes Referrals: Bruno Paredes MD [Primary Care Provider] - As Needed Disposition Disposition: Home, Self Care
[2023-07-23] MEDS: Morphine 4 MG/ML Syringe IV (03:25)
[2023-07-23] MEDS: Ketorolac 15 MG/ML Vial IV (03:26)
[2023-07-23] MEDS: Ondansetron 4 MG/2 ML Vial IV (03:26)
[2023-07-23 03:32] LABS: Absolute Lymphocyte Count 3.57 X10^3/uL (0.83-4.51); Absolute Neutrophil Count 6.7 X10^3/uL (2.0-7.7); Basophil# 0.06 X10^3/uL; Basophil% 0.5 % (0-1); Eosinophil# 0.23 X10^3/uL; Hematocrit 40.4 % (37-47); Hemoglobin 13.4 g/dL (12.0-15.0); Lymphocyte # 3.57 X10^3/ul (0.83-4.51); Lymphocyte % 31.5 % (19-41); Mean Corp Hgb Conc 33.2 g/dL (32-36); Mean Corpuscular Hgb 29.3 pg (27.0-32.0); Mean Corpuscular Volume 88.2 fL (81-99); Mean Platelet Vol. 10.1 fl (6.2-12.0); Monocyte# 0.73 X10^3/uL; Monocyte% 6.4 % (0-10); NRBC Flagged by Analyzer 0 % (0-5); Neutrophil % 59.2 % (47-70); Platelet Count 344 K/mm3 (150-450); RBC Distribution Width CV 13.8 % (11.6-14.6); RBC Distribution Width SD 44.4 fl (35.1-43.9); Red Blood Count 4.58 M/mm3 (4.2-5.4); White Blood Count 11.3 K/mm3 (4.4-11.0)
[2023-07-23 03:48] LABS: ALB/GLOB Ratio 0.8 RATIO (0.9-2.4); AST(SGOT) 19 U/L (15-37); Alanine Aminotransfer ALT/SGPT 24 U/L (13-56); Albumin, Serum 3.2 g/dL (3.2-5.0); Alkaline Phosphatase 123 U/L (45-117); Anion Gap 4 (5-15); BUN 15 mg/dL (7-18); BUN/Creat Ratio 19.9 RATIO (10-20); Calcium,Total 8.7 mg/dL (8.5-10.1); Chloride 108 mmol/L (98-107); Creatinine, Serum 0.75 mg/dL (0.55-1.02); EST Glomerular Filtration Rate 85 mL/min (>60); Est Glom Filt Rate - Afr Amer 103 mL/min (>60); Globulin 3.9 g/dL (2.2-4.2); Glucose 131 mg/dL (74-106); Lipase 48 U/L (13-75); Potassium 3.7 mmol/L (3.5-5.1); Protein, Total 7.1 g/dL (6.4-8.2); Sodium Level 139 mmol/L (136-145)
[2023-07-23 04:07] LABS: Mucous, Urine 0 SEEN /hpf (<or=2+); Red Blood Cells-Urine 0 SEEN /hpf (0-5)
[2023-07-23 04:08] LABS: Color, Urine Yellow (Yellow); Glucose, Dipstick Normal (Normal); Ketone-Dipstick Negative (Negative); Leukocyte Esterase-Dipstick 500 /ul (Negative); Nitrite-Dipstick Negative (Negative); Occult Blood-Urine 10 /ul (Negative); Protein-Dipstick 30 mg/dl (Negative); Urine Bilirubin Dipstick Negative (Negative); Urine Clarity Clear (Clear); Urine Urobilinogen Normal (Normal)
[2023-07-23 04:25] LABS: Bacteria RARE /hpf (None Seen); Calcium Oxalate Crystals Ur RARE /hpf (<or=2+); Squamous Epithelial Cells - UA 0-5 SEEN /hpf (5-10); White Blood Cells 0-5 SEEN /hpf (0-5)
== END 2023-07-23 05:09 | disposition home or self-care (01) ==
PROVIDERS: Emergency Provider Emergency Medicine; PCP Family Medicine; Visit Provider Emergency Medicine
DX: R10.9 Unspecified abdominal pain (principal); R19.7 Diarrhea, unspecified; F84.0 Autistic disorder; R62.50 Unspecified lack of expected normal physiological development in childhood; I10 Essential (primary) hypertension; E78.5 Hyperlipidemia, unspecified; F41.9 Anxiety disorder, unspecified
CPT/HCPCS: 74176; 80053; 81001; 83690; 85025; 87086; 96374; 96375; 99284; A4216; J2405

== ENCOUNTER 2023-08-10 00:44 | Emergency (ER) | payer MEDICARE, MEDICAID, SELFPAY ==
[2023-08-10 00:45] VITALS: BP 150/88; PULSE 89; RESP 18; TEMP 36.2; O2SAT 98; BMI 36.6
--- NOTE | 2023-08-10 01:08 | ED.VIS.GI ---
HPI HPI - GI History of Present Illness Chief Complaint: Flank Pain Narrative Narrative: 52-year-old female presents with her mother because of right flank pain. They relate history that she was seen in the emergency department 3 to 4 weeks ago where she had a workup in the did not determine the cause of her right flank pain. She states that she was in bed, and awoke from sleep with right flank pain. She denies any fevers or chills, no nausea or vomiting. No dysuria or hematuria. She had a normal bowel movement earlier yesterday. No exacerbating or alleviating factors. Pain radiates more towards her back than to the front. This is similar to the pain that she had 3 to 4 weeks ago. Prior similar symptoms: Yes PFSH PFSH Medical History Abnormal EKG Abnormal uterine bleeding due to endocervical polyp Autism Developmental disability Hyperlipidemia Hypertension Pre-operative cardiovascular examination Tachycardia Unresponsive episode Home Medications atenolol 50 mg tablet 50 mg PO DAILY blood pressure 02/24/19 [History Last Taken 10/30/19 04:00] biotin 10,000 mcg capsule 10,000 mcg PO DAILY hair 03/10/19 [History Last Taken 03/03/19] Allergy/AdvReac Type Severity Reaction Status Date / Time No Known Allergies Allergy Verified 08/10/23 00:49 Family History Mother Hypertension Hyperlipidemia Social History Smoking Status: Never smoker ROS ROS ED ROS Narrative Constitutional: No fever, no chills. HEENT: No sore throat. No neck pain. No loss of vision. No rhinorrhea. Cardiovascular: No chest pain. No palpitations. No pedal edema. Respiratory: No cough, no shortness of breath. Abdominal: Right upper quadrant to right flank abdominal pain. Radiates towards back. No nausea. No vomiting. Genitourinary: No dysuria. No hematuria. Musculoskeletal: No myalgias. No arthralgias. Neurologic: No headaches. No dizziness. No lightheadedness. Skin: No rash. No change in color. Psychiatric: No depression. No anxiety. EXAM Physical Exam Narrative Exam Narrative: Afebrile. Vital signs noted. HEENT: Normocephalic. Atraumatic. PERRL, EOMI. Neck soft and supple. No point tenderness or step off. Cardiovascular: Regular rate and rhythm. No murmurs, rubs, or gallops appreciated. Respiratory: No tachypnea. Lungs clear to auscultation bilaterally. Gastrointestinal: Abdomen soft, tenderness in right upper quadrant and right flank, with normoactive bowel sounds. No rebound or guarding. Negative Suarez sign. Neurological: Awake. Alert. Nonfocal, nonlateralizing. Skin: No rash. Normal color. No pallor. Musculoskeletal: No pedal edema. Full range of motion extremities. Const Vital Signs: 08/10/23 00:45 Temperature 97.2 F L Temperature Source Temporal Pulse Rate 89 Respiratory Rate 18 Blood Pressure 150/88 H Blood Pressure Mean 108 Pulse Ox 98 Oxygen Delivery Method Room Air MDM MDM MDM Narrative Medical decision making narrative: In the differential diagnosis would be ureterolithiasis versus cholelithiasis/cholecystitis versus pancreatitis. I reviewed the patient's prior records. She did have a workup where laboratory work was performed, and CT was performed. She had a bedside ultrasound performed by Dr. Hoffman as ultrasound was not available at night, which was negative for cholelithiasis, and she had a negative sonographic Suarez sign at that time as well. I will repeat her laboratory work and CT imaging. I have low suspicion for ureterolithiasis because not having dysuria or hematuria. She will be administered a bolus of normal saline 1 L intravenously along with morphine and ondansetron. I reviewed her laboratory work and she has a slightly elevated white count of 11.1 which I think is nonspecific as it was slightly elevated in the past and during her past visit. Hemoglobin 13.8, platelet count normal at 336. Sodium is normal at 142 and potassium 3.7, BUN of 17 and creatinine 0.77. Glucose is elevated at 159 but she has an anion gap low at 4. Urinalysis shows 10-25 RBCs and 25-50 WBCs with rare bacteria. However, the patient states that she is not having any dysuria or hematuria. Through shared decision making, urine culture will be obtained and I will refrain from prescribing antibiotics at this time. CT of the abdomen pelvis radiology report was reviewed. There is no acute process once again identified. However, there is comment on multiple small gallstones. I feel she probably has gallstones with biliary colic. Her lipase is normal at 63 and her LFTs are normal with an AST of 15 and ALT of 23. Hence, I have low suspicion for gallstone pancreatitis. Based on her examination, I have low suspicion for cholecystitis as well. She did require Toradol which made her feel significantly improved. At this point in time, I do not feel that she requires an emergent ultrasound, and is currently unavailable at this hour. Patient is comfortable going home and mother is comfortable taking her. They will follow-up with her primary care physician and she was told that she may need referral to a general surgeon. She will take [id number] medications for analgesia. Return instructions to the emergency department were reviewed. Disposition is discharged home in stable condition. History & Record Review Discussion w/independent historian: Patient and Family (Mother) Additional record(s) reviewed:: Prior ED visit and Prior labs Lab Data Attestation: I reviewed the patient's lab results. Labs: Laboratory Results - last 24 hr 08/10/23 08/10/23 00:52 01:37 WBC 11.1 H RBC 4.76 Hgb 13.8 Hct 42.0 MCV 88.2 MCH 29.0 MCHC 32.9 RDW Std Deviation 44.0 H RDW Coeff of Yoandy 13.7 Plt Count 336 MPV 10.5 Immature Gran % (Auto) 0.700 Neut % (Auto) 47.9 Lymph % (Auto) 41.8 H [place] % (Auto) 6.3 Eos % (Auto) 2.6 Baso % (Auto) 0.7 Absolute Neuts (auto) 5.3 Absolute Lymphs (auto) 4.65 H Nucleated RBC % 0 Sodium 142 Potassium 3.7 Chloride 107 Carbon Dioxide 31.0 Anion Gap 4 L BUN 17 Creatinine 0.77 Estim Creat Clear Calc 85.26 Est GFR (MDRD) Af Amer 100 Est GFR (MDRD) Non-Af 83 BUN/Creatinine Ratio 22.0 H Glucose 159 H Calcium 9.2 Total Bilirubin 0.30 AST 15 ALT 23 Alkaline Phosphatase 132 H Total Protein 7.7 Albumin 3.6 Globulin 4.1 Albumin/Globulin Ratio 0.9 Lipase 63 Urine Color Yellow Urine Clarity Clear Urine pH 6.0 Ur Specific [place] 1.025 Urine Protein 30 H Urine Glucose (UA) 50 H Urine Ketones Negative Urine Occult Blood 25 H Urine Nitrite Negative Urine Bilirubin Negative Urine Urobilinogen Normal Ur Leukocyte Esterase 500 H Urine RBC 10-25 SEEN Urine WBC 25-50 SEEN Ur Squamous Epith Cells 0-5 SEEN Urine Bacteria RARE Urine Mucus 0 SEEN Radiography Diagnostic Testing: Clinical Impression(s) from Imaging Studies Abdomen/Pelvis CT 08/10/23 01:32 IMPRESSION: 1. No acute abnormalities identified in the abdomen/pelvis. 2. Multiple small gallstones. Electronically Signed: Rick Kirkland MD at 3:00 EDT , Discharge Plan Triage Chief Complaint: Flank Pain ED Provider: Everardo Llamas Dx/Rx/DC Orders Clinical Impression: Gallstones, Abdominal pain Instructions: Treating Gallstones, ED Gallstones with Biliary Colic Prescriptions: No Action atenolol 50 MG tablet 50 mg PO DAILY biotin 10,000 MCG capsule 10,000 mcg PO DAILY Primary Care Provider: Bruno Paredes Referrals: Bruno Paredes MD [Primary Care Provider] - 3-5 Days if not improving Activity Restrictions/Additional Instructions: Follow-up with your primary care provider. You may need referral to a general surgeon. Return with fever, nausea and vomiting, increased pain, new or worsening symptoms. Start a clear liquid diet and advance as tolerated. Disposition Disposition: Home, Self Care
[2023-08-10 01:16] LABS: Absolute Lymphocyte Count 4.65 X10^3/uL (0.83-4.51); Absolute Neutrophil Count 5.3 X10^3/uL (2.0-7.7); Basophil# 0.08 X10^3/uL; Basophil% 0.7 % (0-1); Eosinophil# 0.29 X10^3/uL; Eosinophils% 2.6 % (0-5); Hemoglobin 13.8 g/dL (12.0-15.0); Lymphocyte # 4.65 X10^3/ul (0.83-4.51); Lymphocyte % 41.8 % (19-41); Mean Corp Hgb Conc 32.9 g/dL (32-36); Mean Corpuscular Volume 88.2 fL (81-99); Mean Platelet Vol. 10.5 fl (6.2-12.0); Monocyte% 6.3 % (0-10); NRBC Flagged by Analyzer 0 % (0-5); Neutrophil # 5.32 X10^3/uL (2.7-7.7); Neutrophil % 47.9 % (47-70); Platelet Count 336 K/mm3 (150-450); RBC Distribution Width CV 13.7 % (11.6-14.6); Red Blood Count 4.76 M/mm3 (4.2-5.4); White Blood Count 11.1 K/mm3 (4.4-11.0)
[2023-08-10] MEDS: 0.9% Normal Saline (1000mL) 1,000 ML 1000 ML IV (01:32)
[2023-08-10] MEDS: Ondansetron 4 MG/2 ML Vial IV (01:32)
[2023-08-10] MEDS: Morphine 4 MG/ML Syringe IV (01:32)
--- NOTE | 2023-08-10 01:32 | CT_ITS ---
EXAM: CT ABDOMEN AND PELVIS WITHOUT INTRAVENOUS CONTRAST CLINICAL INDICATION: Pain Right Flank TECHNIQUE: Helically acquired images were obtained of the abdomen and pelvis without intravenous contrast. This CT exam was performed using one or more of the following dose reduction techniques: automated exposure control, adjustment of the mA and/or kV according to patient size, and/or use of iterative reconstruction technique. RADIATION DOSE: CTDIvol = 19.32 mGy, DLP = 1018.37 mGy-cm COMPARISON: CT abdomen and pelvis 07/23/2023 FINDINGS: LOWER THORAX: Unremarkable. Lung bases are clear. No cardiomegaly. No significant pericardial effusion. ABDOMEN: LIVER: Unremarkable. Homogeneous. GALLBLADDER AND BILE DUCTS: Multiple small gallstones. No gallbladder distention or wall edema. No intra- or extrahepatic biliary ductal dilation. PANCREAS: Unremarkable. No focal cystic mass. SPLEEN: Unremarkable. Normal size without focal cystic or solid mass. ADRENALS: Unremarkable. No nodules. KIDNEYS AND URETERS: No ureteral stone or renal obstruction. Normal renal size and position. STOMACH AND BOWEL: Diverticular disease of the colon but no diverticulitis. No stomach or bowel distention. PELVIS: APPENDIX: No evidence of acute appendicitis. BLADDER: Unremarkable. REPRODUCTIVE: Unremarkable as visualized. No mass. ABDOMEN and PELVIS: INTRAPERITONEAL SPACE: Unremarkable. No ascites or other fluid collection. No free air. BONES/JOINTS: Unremarkable. No suspicious lytic or blastic abnormality. SOFT TISSUES: Unremarkable. No discrete abdominal or pelvic wall hernia. VASCULATURE: Unremarkable. Abdominal aorta is non-dilated. LYMPH NODES: Unremarkable. No enlarged lymph nodes. CT/Abdomen/Pelvis without Cont IMPRESSION: 1. No acute abnormalities identified in the abdomen/pelvis. 2. Multiple small gallstones. Electronically Signed: Rick Kirkland MD at 3:00 EDT ,
[2023-08-10 01:33] LABS: ALB/GLOB Ratio 0.9 RATIO (0.9-2.4); AST(SGOT) 15 U/L (15-37); Alanine Aminotransfer ALT/SGPT 23 U/L (13-56); Albumin, Serum 3.6 g/dL (3.2-5.0); Alkaline Phosphatase 132 U/L (45-117); Anion Gap 4 (5-15); BUN 17 mg/dL (7-18); Calcium,Total 9.2 mg/dL (8.5-10.1); Chloride 107 mmol/L (98-107); Creatinine, Serum 0.77 mg/dL (0.55-1.02); EST Glomerular Filtration Rate 83 mL/min (>60); Est Glom Filt Rate - Afr Amer 100 mL/min (>60); Estimated Creatinine Clearance 85.26 ml/min; Globulin 4.1 g/dL (2.2-4.2); Glucose 159 mg/dL (74-106); Lipase 63 U/L (13-75); Potassium 3.7 mmol/L (3.5-5.1); Protein, Total 7.7 g/dL (6.4-8.2); Sodium Level 142 mmol/L (136-145)
[2023-08-10 01:40] LABS: Mucous, Urine 0 SEEN /hpf (<or=2+)
[2023-08-10 02:05] LABS: Color, Urine Yellow (Yellow); Glucose, Dipstick 50 mg/dl (Normal); Ketone-Dipstick Negative (Negative); Leukocyte Esterase-Dipstick 500 /ul (Negative); Nitrite-Dipstick Negative (Negative); Occult Blood-Urine 25 /ul (Negative); Protein-Dipstick 30 mg/dl (Negative); Specific Gravity, Urine 1.025 (1.002-1.030); Urine Bilirubin Dipstick Negative (Negative); Urine Clarity Clear (Clear); Urine Urobilinogen Normal (Normal)
[2023-08-10 02:08] LABS: Bacteria RARE /hpf (None Seen); Red Blood Cells-Urine 10-25 SEEN /hpf (0-5); Squamous Epithelial Cells - UA 0-5 SEEN /hpf (5-10); White Blood Cells 25-50 SEEN /hpf (0-5)
[2023-08-10] MEDS: Ketorolac 30 MG/ML Syringe IV (02:30)
[2023-08-10 02:44] VITALS: PULSE 89
[2023-08-10 03:20] VITALS: BP 123/75; PULSE 89; RESP 18; TEMP 36.6; O2SAT 97
== END 2023-08-10 03:21 | disposition home or self-care (01) ==
PROVIDERS: Emergency Provider Emergency Medicine; PCP Family Medicine; Visit Provider Emergency Medicine
DX: K80.20 Calculus of gallbladder without cholecystitis without obstruction (principal); I10 Essential (primary) hypertension; E78.5 Hyperlipidemia, unspecified; R10.9 Unspecified abdominal pain
CPT/HCPCS: 74176; 80053; 81001; 83690; 85025; 87086; 87088; 96361; 96374; 96375; 99283; J7030; A4216; J2405